=== PATIENT | male | born 1980 | race Caucasian/White ===

== ENCOUNTER 2016-05-12 14:10 | Emergency (ER) | payer MEDICARE, MEDICAID ==
[2016-05-12 15:33] LABS: CALCIUM OXALATE CRYSTALS MODERATE
[2016-05-12] MEDS ORDERED: MORPHINE 4 MG/ML 1ML SYRINGE As Ordered ONE (15:36)
[2016-05-12] MEDS ORDERED: ONDANSETRON 4MG/2ML VIAL (J2405) As Ordered ONE (15:36)
[2016-05-12] MEDS ORDERED: KETOROLAC 30 MG/ML VIAL (J1885) As Ordered ONE (15:36)
[2016-05-12 15:58] LABS: BASO # 0.1 K/mm3 (0.0-0.2); BASO % 0.8 % (0.0-1.0); EOS # 0.2 K/mm3 (0.0-0.50); EOS % 1.8 % (0.0-3.0); LARGE UNSTAINED CELL # 0.1 K/mm3 (0.0-0.4); LYMPH # 1.7 K/mm3 (1.5-4.5); LYMPH % 12.4 % (24.0-44.0); MEAN CORPUSCULAR HEMOGLOBIN 30.1 pg (27.0-33.0); MEAN CORPUSCULAR HGB CONC 33.2 g/dl (32.0-36.5); MEAN CORPUSCULAR VOLUME 90.9 fl (80.0-96.0); MONO # 0.7 K/mm3 (0.0-0.8); NEUTROPHILS # 10.2 K/mm3 (1.8-7.7); PLATELET COUNT, AUTOMATED 272 k/mm3 (150-450); RED CELL DISTRIBUTION WIDTH 13.9 % (11.5-14.5); WHITE BLOOD COUNT 12.9 K/mm3 (4.0-10.0)
[2016-05-12 16:02] LABS: INR 0.94
[2016-05-12 16:19] LABS: ALBUMIN 4.1 GM/DL (3.2-5.2); ALBUMIN/GLOBULIN RATIO 1.24 (1.00-1.93); ALKALINE PHOSPHATASE 311 U/L (45-117); ALT/SGPT 983 U/L (12-78); AMYLASE 45 U/L (25-115); ANION GAP 8 MEQ/L (8-16); AST/SGOT 462 U/L (15-37); BILIRUBIN,DIRECT 3.3 MG/DL (0.0-0.2); BILIRUBIN,TOTAL 3.9 MG/DL (0.2-1.0); BLOOD UREA NITROGEN 15 MG/DL (7-18); CALCIUM LEVEL 9.1 MG/DL (8.5-10.1); CARBON DIOXIDE LEVEL 27 MEQ/L (21-32); CHLORIDE LEVEL 105 MEQ/L (98-107); GLOMERULAR FILTRATION RATE > 60.0 (>60); GLUCOSE, FASTING 99 MG/DL (70-105); POTASSIUM SERUM 4.5 MEQ/L (3.5-5.1); SODIUM LEVEL 140 MEQ/L (136-145); TOTAL PROTEIN 7.4 GM/DL (6.4-8.2)
--- NOTE | 2016-05-12 16:25 | REP ---
Clinical: Right flank pain. Findings: Liver, spleen, pancreas, gallbladder, and bilateral adrenal glands are normal for noncontrast examination. The kidneys are grossly unremarkable and without perinephric stranding, hydroureteronephrosis, intrarenal or obstructing ureteral calculi. The enteric system is without obstruction or acute inflammatory process. Normal terminal ileum and appendix are identified in the right lower quadrant. Pelvis demonstrates collapsed normal bladder and age appropriate prostate/seminal vesicles. No pelvic fluid or ascites. No free air. No adenopathy. Abdominal aorta normal caliber without aneurysm. Musculoskeletal structures intact and without focal osseous abnormality. Lung bases are clear. Impression: Normal noncontrast CT of the abdomen and pelvis. Specifically, normal appearance to the kidneys/ureters and bladder. Signed by Yusuf Connelly MD 05/12/2016 04:16 P
--- NOTE | 2016-05-12 17:16 | REP ---
Clinical: Biliary colic . Technique: Willams scale ultrasound using curved array transducer. Findings: The liver demonstrates fatty infiltration without focal lesion. The pancreas is incompletely evaluated due to interposed bowel gas. The gallbladder is normal without gallstones, wall thickening or pericholecystic fluid. The common bile duct is dilated to 15.5 mm without obvious choledocholithiasis or cause mild associated intrahepatic biliary ductal dilatation cannot be excluded as well. The right kidney is normal in reniform shape without hydronephrosis and measures 12.8 x 5.6 x 5.1 cm. No ascites. Visualized portions of the abdominal aorta normal. Impression: Common bile duct dilatation without obvious obstructing stone or cause. 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 Normal gallbladder. Signed by Yusuf Connelly MD 05/12/2016 05:08 P
--- NOTE | 2016-05-12 18:07 | EDDOCDS ---
Physician Documentation [facility] Name: Alexandre Rivas Age: 36 yrs Sex: Male : 1980 Arrival Date: 05/12/2016 Time: 14:10 Bed I8 / 16 Private MD: Tremayne Elias Disposition: 05/12/16 17:49 Discharged to Home/Self Care. Impression: Acute viral hepatitis, unspecified. - Condition is Stable. - Discharge Instructions: Diet and Hepatitis, Viral Hepatitis. - Prescriptions for Percocet 5- 325 mg Oral Tablet - take 1 tablet by ORAL route every 6 hours As needed MDD: 4 tabs; 20 tablet. Zofran 4 mg Oral Tablet - take 1 tablet by ORAL route 4 times per day As needed; 10 tablet. - Work Release Form - 5 day, Medication Reconciliation, Local Pharmacy Hours form. - Follow up: Tremayne Elias MD; When: 4 - 5 days; Reason: Recheck today's complaints, Continuance of care. Follow up: Apolinar Vargas; When: Call to arrange an appointment; Reason: Further diagnostic work-up, Continuance of care. - Problem is an ongoing problem. - Symptoms are unchanged. Historical: - Allergies: no known allergies; - Home Meds: 1. Lipitor Unknown Oral once daily (Last dose: 05/12/2016 08:00) 2. Vitamin B-12 1,000 mcg Oral tab daily 3. Vitamin D Oral 2000 units daily 4. Wellbutrin Oral 1 tab daily - PMHx: Hypercholesterolemia; Pernicious Anemia; - PSHx: Vasectomy; - Social history: Smoking status: Patient states was never smoker of tobacco. No barriers to communication noted, The patient speaks fluent Bulgarian. - Family history: Not pertinent. - : The pt / caregiver states he / she is not on anticoagulants. Home medication list is obtained from the patient. - Exposure Risk Screening:: None identified. Vital Signs: 05/12 14:12 BP 151 / 78; Pulse 73; Resp 18; Temp 98.2; Pulse Ox 100% on R/A; Weight 111.58 kg / sar1 245.99 lbs (R); Height 6 ft. 0 in. (182.88 cm); Pain 7/10; 14:12 Body Mass Index 33.36 (111.58 kg, 182.88 cm) sar1 MDM: 15:19 UA Ordered. EDMS 15:19 Urine Culture Ordered. EDMS 15:25 NS 0.9% 1000 ml IV at 100 mL/hr continuous ordered. ke 15:25 Ondansetron 4 mg IVP once ordered. ke 15:25 ketorolac 30 mg IVP once ordered. ke 15:25 morphine 4 mg IVP every 30 minutes; Document pain score/vitals after each dose (Hold if ke SBP < 90mmHg) x2 ordered. 15:25 IV Saline Lock ordered. ke 15:25 Undress patient appropriately for examination ordered. ke 15:26 Amylase Ordered. EDMS 15:26 Basic Metabolic Profile Ordered. EDMS 15:26 CBC with Diff Ordered. EDMS 15:26 Lipase Ordered. EDMS 15:26 Liver Profile Ordered. EDMS 15:26 Prothrombin Time Profile\E\INR Ordered. EDMS 15:26 CT ABD & PELVIS: No Contrast Ordered. EDMS 15:26 NOTHING BY MOUTH+DIET ordered. EDMS 16:01 Financial registration complete. [email or web address] 16:02 [facility] Payment Agreement was scanned into [employer] and attached to record. ks16 16:31 UA Reviewed. ke 16:31 CBC with Diff Reviewed. ke 16:31 Liver Profile Reviewed. ke 16:31 Amylase Reviewed. ke 16:31 Basic Metabolic Profile Reviewed. ke 16:31 Lipase Reviewed. ke 16:31 Prothrombin Time Profile\E\INR Reviewed. ke 16:31 CT ABD & PELVIS: No Contrast Reviewed. ke 16:35 Hepatitis Profile Ordered. EDMS 16:35 US Gallbladder Ordered. EDMS Administered Medications: 15:44 Drug: NS 0.9% 1000 ml [sodium chloride 0.9 % intravenous solution] Route: IV; Rate: 100 jc4 mL/hr; Site: right antecubital; 15:44 Drug: Ondansetron 4 mg [ondansetron HCl 2 mg/mL intravenous solution (2 mL)] Route: jc4 IVP; Site: right antecubital; 15:46 Drug: ketorolac 30 mg [ketorolac 30 mg/mL (1 mL) injection solution (1 mL)] Route: IVP; jc4 Site: right antecubital; 15:50 Drug: morphine 4 mg [morphine 4 mg/mL intravenous cartridge (1 mL)] Route: IVP; Site: jc4 right antecubital; Signatures: Dispatcher [employer] Andrea Cui RN RN ms2 Sorin Weiss RN RN Hair Chauhan, INSTRUCTOR BALLROOM DANCING Faby Ortiz RN RN jc4 Chely Torres, Reg Reg [email or web address] The chart was reviewed and I authenticate all verbal orders and agree with the evaluation and treatment provided.Attachments: 16:02 [facility] Payment Agreement [email or web address] MTDD
--- NOTE | 2016-05-12 18:07 | EDDOCDS ---
Nurse's Notes [facility] Name: Alexandre Rivas Age: 36 yrs Sex: Male : 1980 Arrival Date: 05/12/2016 Time: 14:10 Bed I8 / 16 Private MD: Tremayne Elias Diagnosis: Acute viral hepatitis, unspecified Presentation: 05/12 14:14 Presenting complaint: Patient states: right flank with nausea, diaphoresis and right po abd pain x1 hour. Pain and nausea improved at this time. Risk factors: the patient reports not having a history of previous torsion. Adult Sepsis Screening: The patient does not have new or worsening altered mentation. Patient's respiratory rate is less than 22. Systolic blood pressure is greater than 100. Patient has a qSOFA score of 0- Negative Sepsis Screen. Suicide/Homicide risk assessment- the patient denies having any suicidal and/or homicidal ideations and does not present with any other emotional, behavioral or mental health complaints. Status: Patient is not a automotive service porter or dependent. Transition of care: patient was not received from another setting of care. 14:14 Acuity: GENIA Level 3 po 14:14 Method Of Arrival: Walkin/Carried/Asstd po Triage Assessment: 14:19 General: Appears in no apparent distress, Behavior is appropriate for age, cooperative. po Pain: Location: right flank, right upper quadrant and right lower quadrant Pain currently is 5 out of 10 on a pain scale. Is continuous. Pt Declines HIV testing. Neurological: No deficits noted. Respiratory: Airway is patent Respiratory effort is even, unlabored. GI: Denies nausea. Derm: Skin is pink, warm & dry. Historical: - Allergies: no known allergies; - Home Meds: 1. Lipitor Unknown Oral once daily (Last dose: 05/12/2016 08:00) 2. Vitamin B-12 1,000 mcg Oral tab daily 3. Vitamin D Oral 2000 units daily 4. Wellbutrin Oral 1 tab daily - PMHx: Hypercholesterolemia; Pernicious Anemia; - PSHx: Vasectomy; - Social history: Smoking status: Patient states was never smoker of tobacco. No barriers to communication noted, The patient speaks fluent Nigerian. - Family history: Not pertinent. - : The pt / caregiver states he / she is not on anticoagulants. Home medication list is obtained from the patient. - Exposure Risk Screening:: None identified. Screenin:47 Screening information is obtained from the patient. Fall risk: No risks identified. jc4 Assistance ADL's: requires no assistance with activities of daily living. Abuse/DV Screen: The patient / caregiver reports he/she is: not in a situation that causes fear, pain or injury. Nutritional screening: On no prescribed diet. Advance Directives: Currently, there is no health care proxy. There is no active DNR order. There is no living will. There is no Power of Preparation Supervisor Canning. home support is adequate. Assessment: 15:48 General: Appears uncomfortable. Pain: Pain currently is 7 out of 10 on a pain scale. jc4 Neurological: Level of Consciousness is awake, alert, Oriented to person, place, time. Respiratory: Airway is patent Respiratory effort is even, unlabored, Respiratory pattern is regular, symmetrical. GI: Abdomen is obese, Bowel sounds present X 4 quads. Abd is tender to palpation in right upper quadrant and right lower quadrant. GI: Denies diarrhea, nausea, vomiting. Derm: Skin is pink, warm & dry. 17:11 General: Appears in no apparent distress, comfortable, Behavior is cooperative. Pain: ms2 Denies pain. Neurological: Level of Consciousness is awake, alert, obeys commands. Respiratory: No deficits noted. Airway is patent Respiratory effort is even, unlabored, Respiratory pattern is regular, symmetrical. GI: Abdomen is non- distended obese. Derm: Skin is pink, warm & dry. Musculoskeletal: Range of motion intact in all extremities. Vital Signs: 14:12 BP 151 / 78; Pulse 73; Resp 18; Temp 98.2; Pulse Ox 100% on R/A; Weight 111.58 kg (R); sar1 Height 6 ft. 0 in. (182.88 cm); Pain 7/10; 14:12 Body Mass Index 33.36 (111.58 kg, 182.88 cm) [facility] Vitals: 14:12 Log In Time: May 12, 2016 at 14:12. [facility] ED Course: 14:11 Patient visited by Polina Glass, Event Executive. sar1 14:11 Patient moved to Waiting [facility] 14:12 Tremayne Elias MD is Private Physician. sar1 14:13 Patient moved to Pre RCE sar1 14:16 Triage Initiated po 14:19 Arm band placed on right wrist. Patient placed in waiting room. Family accompanied po patient. 14:21 Patient visited by Sorin Weiss,RADHA. po 15:13 Andrea Young,RADHA is Primary Nurse. mlb1 15:13 [facility] Rodriguez FNP [facility]. ke 15:13 Patient visited by Hair Rodriguez FNP. ke 15:13 Patient visited by Hair Rodriguez FNP. ke 15:13 Patient moved to I8 / 16 mlb1 15:35 Patient visited by Hair Rodriguez FNP. ke 15:49 The patient / caregiver is instructed regarding the plan of care and ED course. jc4 15:50 Inserted saline lock: 20 gauge in right antecubital area The patient tolerated the jc4 procedure well. done by Darcie Valdivia RN. 16:02 [facility] Payment Agreement was scanned into [employer] and attached to record. ks16 16:05 Patient visited by Hair Rodriguez FNP. ke 16:31 CT ABD & PELVIS: No Contrast Returned. EDMS 16:32 Patient visited by Lucas Hubbard PCA. jlf 17:04 Patient visited by Hair Rodriguez FNP. ke 17:12 The patient / caregiver is instructed regarding the plan of care and ED course. ms2 17:12 IV is patent, is intact, is free of redness or swelling. solution is infusing as ms2 ordered. No procedures done that require assistance. 17:31 US Gallbladder Returned. EDMS 17:34 Patient visited by Hair Rodriguez FNP. ke 17:48 Tremayne Elias MD is Referral Physician. ke 17:48 Apolinar Vargas is Referral Physician. ke Administered Medications: 15:44 Drug: NS 0.9% 1000 ml [sodium chloride 0.9 % intravenous solution] Route: IV; Rate: 100 jc4 mL/hr; Site: right antecubital; 15:44 Drug: Ondansetron 4 mg [ondansetron HCl 2 mg/mL intravenous solution (2 mL)] Route: jc4 IVP; Site: right antecubital; 15:46 Drug: ketorolac 30 mg [ketorolac 30 mg/mL (1 mL) injection solution (1 mL)] Route: IVP; jc4 Site: right antecubital; 15:50 Drug: morphine 4 mg [morphine 4 mg/mL intravenous cartridge (1 mL)] Route: IVP; Site: 4 right antecubital; Order Results: Lab Order: UA; SPEC'M 05/12/16 15:20 Test: APPEARANCE, URINE; Value: HAZY; Range: CLEAR; Status: F Test: COLOR, URINE; Value: KEVIN; Range: YELLOW; Status: F Test: PH,URINE; Value: 5.0; Range: 5.0-9.0; Units: UNITS; Status: F Test: SPECIFIC GRAVITY URINE AUTO; Value: 1.032; Range: 1.002-1.035; Status: F Test: PROTEIN, URINE AUTO; Value: 1+; Range: NEGATIVE; Abnormal: Above high normal; Units: mg/dL; Status: F Test: GLUCOSE, URINE (UA) AUTO; Value: NEGATIVE; Range: NEGATIVE; Units: mg/dL; Status: F Test: KETONE, URINE AUTO; Value: NEGATIVE; Range: NEGATIVE; Units: mg/dL; Status: F Test: UROBILINOGEN, URINE AUTO; Value: 4.0; Range: 0.0-2.0; Abnormal: Above high normal; Units: mg/dL; Status: F Test: BILIRUBIN, URINE AUTO; Value: 2+; Range: NEGATIVE; Abnormal: Above high normal; Status: F Test: NITRITE, URINE AUTO; Value: NEGATIVE; Range: NEGATIVE; Status: F Test: LEUKOCYTE ESTERASE, URINE AUTO; Value: NEGATIVE; Range: NEGATIVE; Status: F Test: BLOOD, URINE BLOOD; Value: NEGATIVE; Range: NEGATIVE; Status: F Test: WBC, URINE AUTO; Value: 2; Range: 0-3; Units: /HPF; Status: F Test: RBC, URINE AUTO; Value: 4; Range: 0-3; Abnormal: Above high normal; Units: /HPF; Status: F Test: BACTERIA, URINE AUTO; Value: NEGATIVE; Range: NEGATIVE; Status: F Test: SQUAMOUS EPITHELIAL CELL UR AU; Value: 0; Range: 0-6; Units: /HPF; Status: F Test: MUCUS, URINE; Value: LARGE; Range: NEGATIVE; Status: F Test: HYALINE CAST, URINE AUTO; Value: 0; Range: 0-1; Units: /LPF; Status: F Test: CALCIUM OXALATE CRYSTALS; Value: MODERATE; Range: NONE; Status: F Lab Order: Amylase; SPEC'M 05/12/16 15:32 Test: AMYLASE; Value: 45; Range: 25-115; Units: U/L; Status: F Lab Order: Basic Metabolic Profile; SPEC'M 05/12/16 15:32 Test: GLUCOSE, FASTING; Value: 99; Range: 70-105; Units: MG/DL; Status: F Test: BLOOD UREA NITROGEN; Value: 15; Range: 7-18; Units: MG/DL; Status: F Test: CREATININE FOR GFR; Value: 1.00; Range: 0.70-1.30; Units: MG/DL; Status: F Test: GLOMERULAR FILTRATION RATE; Value: > 60.0; Range: >60; Status: F Test: SODIUM LEVEL; Value: 140; Range: 136-145; Units: MEQ/L; Status: F Test: POTASSIUM SERUM; Value: 4.5; Range: 3.5-5.1; Units: MEQ/L; Status: F Test: CHLORIDE LEVEL; Value: 105; Range: 98-107; Units: MEQ/L; Status: F Test: CARBON DIOXIDE LEVEL; Value: 27; Range: 21-32; Units: MEQ/L; Status: F Test: ANION GAP; Value: 8; Range: 8-16; Units: MEQ/L; Status: F Test: CALCIUM LEVEL; Value: 9.1; Range: 8.5-10.1; Units: MG/DL; Status: F Test Note: ; Units are mL/min/1.73 m2 Chronic Kidney Disease Staging per NKF: Stage I & II GFR >=60 Normal to Mildly Decreased Stage III GFR 30-59 Moderately Decreased Stage IV GFR 15-29 Severely Decreased Stage V GFR <15 Very Little GFR Left ESRD GFR <15 on BEHAVIORAL HEALTH CARE MANAGER Lab Order: CBC with Diff; SPEC'M 05/12/16 15:32 Test: WHITE BLOOD COUNT; Value: 12.9; Range: 4.0-10.0; Abnormal: Above high normal; Units: K/mm3; Status: F Test: RED BLOOD COUNT; Value: 4.92; Range: 4.30-6.10; Units: M/mm3; Status: F Test: HEMOGLOBIN; Value: 14.8; Range: 14.0-18.0; Units: g/dl; Status: F Test: HEMATOCRIT; Value: 44.7; Range: 42.0-52.0; Units: %; Status: F Test: MEAN CORPUSCULAR VOLUME; Value: 90.9; Range: 80.0-96.0; Units: fl; Status: F Test: MEAN CORPUSCULAR HEMOGLOBIN; Value: 30.1; Range: 27.0-33.0; Units: pg; Status: F Test: MEAN CORPUSCULAR HGB CONC; Value: 33.2; Range: 32.0-36.5; Units: g/dl; Status: F Test: RED CELL DISTRIBUTION WIDTH; Value: 13.9; Range: 11.5-14.5; Units: %; Status: F Test: PLATELET COUNT, AUTOMATED; Value: 272; Range: 150-450; Units: k/mm3; Status: F Test: NEUTROPHILS %; Value: 79.0; Range: 36.0-66.0; Abnormal: Above high normal; Units: %; Status: F Test: LYMPH %; Value: 12.4; Range: 24.0-44.0; Abnormal: Below low normal; Units: %; Status: F Test: MONO %; Value: 5.0; Range: 0.0-5.0; Units: %; Status: F Test: EOS %; Value: 1.8; Range: 0.0-3.0; Units: %; Status: F Test: BASO %; Value: 0.8; Range: 0.0-1.0; Units: %; Status: F Test: LARGE UNSTAINED CELL %; Value: 1.0; Range: 0.0-4.0; Units: %; Status: F Test: NEUTROPHILS #; Value: 10.2; Range: 1.8-7.7; Abnormal: Above high normal; Units: K/mm3; Status: F Test: LYMPH #; Value: 1.7; Range: 1.5-4.5; Units: K/mm3; Status: F Test: MONO #; Value: 0.7; Range: 0.0-0.8; Units: K/mm3; Status: F Test: EOS #; Value: 0.2; Range: 0.0-0.50; Units: K/mm3; Status: F Test: BASO #; Value: 0.1; Range: 0.0-0.2; Units: K/mm3; Status: F Test: LARGE UNSTAINED CELL #; Value: 0.1; Range: 0.0-0.4; Units: K/mm3; Status: F Lab Order: Lipase; [facility] 05/12/16 15:32 Test: LIPASE; Value: 203; Range: 73-393; Units: U/L; Status: F Lab Order: Liver Profile; [facility] 05/12/16 15:32 Test: AST/SGOT; Value: 462; Range: 15-37; Abnormal: Above high normal; Units: U/L; Status: F Test: ALT/SGPT; Value: 983; Range: 12-78; Abnormal: Above high normal; Units: U/L; Status: F Test: ALKALINE PHOSPHATASE; Value: 311; Range: 45-117; Abnormal: Above high normal; Units: U/L; Status: F Test: BILIRUBIN,TOTAL; Value: 3.9; Range: 0.2-1.0; Abnormal: Above high normal; Units: MG/DL; Status: F Test: BILIRUBIN,DIRECT; Value: 3.3; Range: 0.0-0.2; Abnormal: Above high normal; Units: MG/DL; Status: F Test: TOTAL PROTEIN; Value: 7.4; Range: 6.4-8.2; Units: GM/DL; Status: F Test: ALBUMIN; Value: 4.1; Range: 3.2-5.2; Units: GM/DL; Status: F Test: ALBUMIN/GLOBULIN RATIO; Value: 1.24; Range: 1.00-1.93; Status: F Lab Order: Prothrombin Time Profile\E\INR; [facility] 05/12/16 15:32 Test: PROTHROMBIN TIME; Value: 12.7; Range: 12.3-14.5; Units: SECONDS; Status: F Test: INR; Value: 0.94; Status: F Test Note: ; THERAPUTIC HUMAN INR VALUES INDICATIONS NORMAL RANGES PROPHYLAXIS/TREATMENT OF: VENOUS THROMBOSIS 2.0-3.0 PULMONARY EMBOLISM 2.0-3.0 PREVENTION OF SYSTEMIC EMBOLISM FROM: TISSUE HEART VALVES 2.0-3.0 ACUTE MYOCARDIAL INFARCTION 2.0-3.0 VALVULAR HEART DISEASE 2.0-3.0 ATRIAL FIBRILLATION 2.0-3.0 MECHANICAL VALVES(HIGH RISK) 2.5-3.5 RECURRENT MYOCARDIAL INFARCTION 2.5-3.5 Radiology Order: CT ABD & PELVIS: No Contrast Test: CT ABD & PELVIS: No Contrast REASON FOR EXAMINATION: Renal colic; Clinical: Right flank pain.; ; Findings:; Liver, spleen, pancreas, gallbladder, and bilateral adrenal glands are normal for; noncontrast examination. The kidneys are grossly unremarkable and without; perinephric stranding, hydroureteronephrosis, intrarenal or obstructing ureteral; calculi. The enteric system is without obstruction or acute inflammatory; process. Normal terminal ileum and appendix are identified in the right lower; quadrant. Pelvis demonstrates collapsed normal bladder and age appropriate; prostate/seminal vesicles. No pelvic fluid or ascites. No free air. No; adenopathy. Abdominal aorta normal caliber without aneurysm. Musculoskeletal; structures intact and without focal osseous abnormality. Lung bases are clear.; ; Impression:; Normal noncontrast CT of the abdomen and pelvis.; Specifically, normal appearance to the kidneys/ureters and bladder.; ; ; Signed by; Yusuf Connelly MD 05/12/2016 04:16 P; Radiology Order: US Gallbladder Test: US Gallbladder REASON FOR EXAMINATION: Biliary Colic; Clinical: Biliary colic .; ; Technique: Willams scale ultrasound using curved array transducer.; ; Findings: The liver demonstrates fatty infiltration without focal lesion. The; pancreas is incompletely evaluated due to interposed bowel gas. The gallbladder; is normal without gallstones, wall thickening or pericholecystic fluid. The; common bile duct is dilated to 15.5 mm without obvious choledocholithiasis or; cause mild associated intrahepatic biliary ductal dilatation cannot be excluded; as well. The right kidney is normal in reniform shape without hydronephrosis and; measures 12.8 x 5.6 x 5.1 cm. No ascites. 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 ke 18:06 Patient left the ED. ms2 Signatures: Dispatcher [employer] EDMS Andrea Young,RN RN ms2 Sorin Weiss,RN RN Hair Chauhan, TOOL AND CUTTER GRINDER TOOL AND CUTTER GRINDER Troy Alarcon RN RN mlb1 Faby Palacio, RN RN jc4 Lucas Hubbard, BALLROOM DANCER BALLROOM DANCER jlf Polina Glass, Event Executive Unit [facility] Chely Torres, Reg Reg [email or web address] MTDD
--- NOTE | 2016-05-14 19:07 | EDDOCDS ---
Physician Documentation [facility] Name: Alexandre Rivas Age: 36 yrs Sex: Male : 1980 Arrival Date: 05/12/2016 Time: 14:10 Bed I8 / 16 Private MD: Tremayne Elias Disposition: 05/12/16 17:49 Discharged to Home/Self Care. Impression: Acute viral hepatitis, unspecified. - Condition is Stable. - Discharge Instructions: Diet and Hepatitis, Viral Hepatitis. - Prescriptions for Percocet 5- 325 mg Oral Tablet - take 1 tablet by ORAL route every 6 hours As needed MDD: 4 tabs; 20 tablet. Zofran 4 mg Oral Tablet - take 1 tablet by ORAL route 4 times per day As needed; 10 tablet. - Work Release Form - 5 day, Medication Reconciliation, Local Pharmacy Hours form. - Follow up: Tremayne Elias MD; When: 4 - 5 days; Reason: Recheck today's complaints, Continuance of care. Follow up: Apolinar Vargas; When: Call to arrange an appointment; Reason: Further diagnostic work-up, Continuance of care. - Problem is an ongoing problem. - Symptoms are unchanged. Historical: - Allergies: no known allergies; - Home Meds: 1. Lipitor Unknown Oral once daily (Last dose: 05/12/2016 08:00) 2. Vitamin B-12 1,000 mcg Oral tab daily 3. Vitamin D Oral 2000 units daily 4. Wellbutrin Oral 1 tab daily - PMHx: Hypercholesterolemia; Pernicious Anemia; - PSHx: Vasectomy; - Social history: Smoking status: Patient states was never smoker of tobacco. No barriers to communication noted, The patient speaks fluent Korean. - Family history: Not pertinent. - : The pt / caregiver states he / she is not on anticoagulants. Home medication list is obtained from the patient. - Exposure Risk Screening:: None identified. Vital Signs: 05/12 14:12 BP 151 / 78; Pulse 73; Resp 18; Temp 98.2; Pulse Ox 100% on R/A; Weight 111.58 kg / sar1 245.99 lbs (R); Height 6 ft. 0 in. (182.88 cm); Pain 7/10; 18:06 BP 121 / 66; Pulse 70; Resp 20 S; Temp 98.3(O); Pulse Ox 97% on R/A; Pain 0/10; ms2 14:12 Body Mass Index 33.36 (111.58 kg, 182.88 cm) sar1 MDM: 15:19 UA Ordered. EDMS 15:19 Urine Culture Ordered. EDMS 15:25 NS 0.9% 1000 ml IV at 100 mL/hr continuous ordered. ke 15:25 Ondansetron 4 mg IVP once ordered. ke 15:25 ketorolac 30 mg IVP once ordered. ke 15:25 morphine 4 mg IVP every 30 minutes; Document pain score/vitals after each dose (Hold if ke SBP < 90mmHg) x2 ordered. 15:25 IV Saline Lock ordered. ke 15:25 Undress patient appropriately for examination ordered. ke 15:26 Amylase Ordered. EDMS 15:26 Basic Metabolic Profile Ordered. EDMS 15:26 CBC with Diff Ordered. EDMS 15:26 Lipase Ordered. EDMS 15:26 Liver Profile Ordered. EDMS 15:26 Prothrombin Time Profile\E\INR Ordered. EDMS 15:26 CT ABD & PELVIS: No Contrast Ordered. EDMS 15:26 NOTHING BY MOUTH+DIET ordered. EDMS 16:01 Financial registration complete. [id number] 16:02 [facility] Payment Agreement was scanned into [employer] and attached to record. ks16 16:31 UA Reviewed. ke 16:31 CBC with Diff Reviewed. ke 16:31 Liver Profile Reviewed. ke 16:31 Amylase Reviewed. ke 16:31 Basic Metabolic Profile Reviewed. ke 16:31 Lipase Reviewed. ke 16:31 Prothrombin Time Profile\E\INR Reviewed. ke 16:31 CT ABD & PELVIS: No Contrast Reviewed. ke 16:35 Hepatitis Profile Ordered. EDMS 16:35 US Gallbladder Ordered. EDMS 19:17 ED course: radiology report faxed to Dr. Elias. sd1 05/13 06:35 T-Sheet-- Draft Copy was scanned into [employer] and attached to record. hs2 Administered Medications: 05/12 15:44 Drug: NS 0.9% 1000 ml [sodium chloride 0.9 % intravenous solution] Route: IV; Rate: 100 jc4 mL/hr; Site: right antecubital; 15:44 Drug: Ondansetron 4 mg [ondansetron HCl 2 mg/mL intravenous solution (2 mL)] Route: jc4 IVP; Site: right antecubital; 15:46 Drug: ketorolac 30 mg [ketorolac 30 mg/mL (1 mL) injection solution (1 mL)] Route: IVP; jc4 Site: right antecubital; 15:50 Drug: morphine 4 mg [morphine 4 mg/mL intravenous cartridge (1 mL)] Route: IVP; Site: jc4 right antecubital; Signatures: Dispatcher [employer] EDTX Prema Ortega MD MD sd1 Andrea Young,RN RN ms2 Sorin Weiss RN RN po Hair Rodriguez, KNOWLEDGE ENGINEER KNOWLEDGE ENGINEER Faby Escamilla RN RN jc4 Chely Torres, Reg Reg ks16 Uma Jeong, Reg Reg hs2 The chart was reviewed and I authenticate all verbal orders and agree with the evaluation and treatment provided.Attachments: 16:02 [facility] Payment Agreement [email or web address] 05/13 06:35 T-Sheet-- Draft Copy hs2 Chart Complete MTDD
--- NOTE | 2016-05-14 19:07 | EDDOCDS ---
Physician Documentation [facility] Name: Alexandre Rivas Age: 36 yrs Sex: Male : 1980 Arrival Date: 05/12/2016 Time: 14:10 Bed I8 / 16 Private MD: Tremayne Elias Disposition: 05/12/16 17:49 Discharged to Home/Self Care. Impression: Acute viral hepatitis, unspecified. - Condition is Stable. - Discharge Instructions: Diet and Hepatitis, Viral Hepatitis. - Prescriptions for Percocet 5- 325 mg Oral Tablet - take 1 tablet by ORAL route every 6 hours As needed MDD: 4 tabs; 20 tablet. Zofran 4 mg Oral Tablet - take 1 tablet by ORAL route 4 times per day As needed; 10 tablet. - Work Release Form - 5 day, Medication Reconciliation, Local Pharmacy Hours form. - Follow up: Tremayne Elias MD; When: 4 - 5 days; Reason: Recheck today's complaints, Continuance of care. Follow up: Apolinar Vargas; When: Call to arrange an appointment; Reason: Further diagnostic work-up, Continuance of care. - Problem is an ongoing problem. - Symptoms are unchanged. Historical: - Allergies: no known allergies; - Home Meds: 1. Lipitor Unknown Oral once daily (Last dose: 05/12/2016 08:00) 2. Vitamin B-12 1,000 mcg Oral tab daily 3. Vitamin D Oral 2000 units daily 4. Wellbutrin Oral 1 tab daily - PMHx: Hypercholesterolemia; Pernicious Anemia; - PSHx: Vasectomy; - Social history: Smoking status: Patient states was never smoker of tobacco. No barriers to communication noted, The patient speaks fluent Telugu. - Family history: Not pertinent. - : The pt / caregiver states he / she is not on anticoagulants. Home medication list is obtained from the patient. - Exposure Risk Screening:: None identified. Vital Signs: 05/12 14:12 BP 151 / 78; Pulse 73; Resp 18; Temp 98.2; Pulse Ox 100% on R/A; Weight 111.58 kg / sar1 245.99 lbs (R); Height 6 ft. 0 in. (182.88 cm); Pain 7/10; 18:06 BP 121 / 66; Pulse 70; Resp 20 S; Temp 98.3(O); Pulse Ox 97% on R/A; Pain 0/10; ms2 14:12 Body Mass Index 33.36 (111.58 kg, 182.88 cm) sar1 MDM: 15:19 UA Ordered. EDMS 15:19 Urine Culture Ordered. EDMS 15:25 NS 0.9% 1000 ml IV at 100 mL/hr continuous ordered. ke 15:25 Ondansetron 4 mg IVP once ordered. ke 15:25 ketorolac 30 mg IVP once ordered. ke 15:25 morphine 4 mg IVP every 30 minutes; Document pain score/vitals after each dose (Hold if ke SBP < 90mmHg) x2 ordered. 15:25 IV Saline Lock ordered. ke 15:25 Undress patient appropriately for examination ordered. ke 15:26 Amylase Ordered. EDMS 15:26 Basic Metabolic Profile Ordered. EDMS 15:26 CBC with Diff Ordered. EDMS 15:26 Lipase Ordered. EDMS 15:26 Liver Profile Ordered. EDMS 15:26 Prothrombin Time Profile\E\INR Ordered. EDMS 15:26 CT ABD & PELVIS: No Contrast Ordered. EDMS 15:26 NOTHING BY MOUTH+DIET ordered. EDMS 16:01 Financial registration complete. [email or web address] 16:02 [facility] Payment Agreement was scanned into [employer] and attached to record. [email or web address] 16:31 UA Reviewed. ke 16:31 CBC with Diff Reviewed. ke 16:31 Liver Profile Reviewed. ke 16:31 Amylase Reviewed. ke 16:31 Basic Metabolic Profile Reviewed. ke 16:31 Lipase Reviewed. ke 16:31 Prothrombin Time Profile\E\INR Reviewed. ke 16:31 CT ABD & PELVIS: No Contrast Reviewed. ke 16:35 Hepatitis Profile Ordered. EDMS 16:35 US Gallbladder Ordered. EDMS 19:17 ED course: radiology report faxed to Dr. Elias. sd1 05/13 06:35 T-Sheet-- Draft Copy was scanned into [employer] and attached to record. hs2 Administered Medications: 05/12 15:44 Drug: NS 0.9% 1000 ml [sodium chloride 0.9 % intravenous solution] Route: IV; Rate: 100 jc4 mL/hr; Site: right antecubital; 15:44 Drug: Ondansetron 4 mg [ondansetron HCl 2 mg/mL intravenous solution (2 mL)] Route: jc4 IVP; Site: right antecubital; 15:46 Drug: ketorolac 30 mg [ketorolac 30 mg/mL (1 mL) injection solution (1 mL)] Route: IVP; jc4 Site: right antecubital; 15:50 Drug: morphine 4 mg [morphine 4 mg/mL intravenous cartridge (1 mL)] Route: IVP; Site: jc4 right antecubital; Signatures: Dispatcher [employer] EDPA Prema Ortega MD MD sd1 Andrea Young,RN RN ms2 Sorin Weiss RN RN po Hair Rodriguez, SPARE PERSON SPARE PERSON Faby Escamilla RN RN jc4 Chely Torres, Reg Reg ks16 Uma Jeong, Reg Reg hs2 The chart was reviewed and I authenticate all verbal orders and agree with the evaluation and treatment provided.Attachments: 16:02 [facility] Payment Agreement [email or web address] 05/13 06:35 T-Sheet-- Draft Copy hs2 Chart Complete MTDD
--- NOTE | 2016-05-14 19:07 | EDDOCDS ---
Nurse's Notes [facility] Name: Alexandre Rivas Age: 36 yrs Sex: Male : 1980 Arrival Date: 05/12/2016 Time: 14:10 Bed I8 / 16 Private MD: Tremayne Elias Diagnosis: Acute viral hepatitis, unspecified Presentation: 05/12 14:14 Presenting complaint: Patient states: right flank with nausea, diaphoresis and right po abd pain x1 hour. Pain and nausea improved at this time. Risk factors: the patient reports not having a history of previous torsion. Adult Sepsis Screening: The patient does not have new or worsening altered mentation. Patient's respiratory rate is less than 22. Systolic blood pressure is greater than 100. Patient has a qSOFA score of 0- Negative Sepsis Screen. Suicide/Homicide risk assessment- the patient denies having any suicidal and/or homicidal ideations and does not present with any other emotional, behavioral or mental health complaints. Status: Patient is not a technical services analyst or dependent. Transition of care: patient was not received from another setting of care. 14:14 Acuity: GENIA Level 3 po 14:14 Method Of Arrival: Walkin/Carried/Asstd po Triage Assessment: 14:19 General: Appears in no apparent distress, Behavior is appropriate for age, cooperative. po Pain: Location: right flank, right upper quadrant and right lower quadrant Pain currently is 5 out of 10 on a pain scale. Is continuous. Pt Declines HIV testing. Neurological: No deficits noted. Respiratory: Airway is patent Respiratory effort is even, unlabored. GI: Denies nausea. Derm: Skin is pink, warm & dry. Historical: - Allergies: no known allergies; - Home Meds: 1. Lipitor Unknown Oral once daily (Last dose: 05/12/2016 08:00) 2. Vitamin B-12 1,000 mcg Oral tab daily 3. Vitamin D Oral 2000 units daily 4. Wellbutrin Oral 1 tab daily - PMHx: Hypercholesterolemia; Pernicious Anemia; - PSHx: Vasectomy; - Social history: Smoking status: Patient states was never smoker of tobacco. No barriers to communication noted, The patient speaks fluent Cameroonian. - Family history: Not pertinent. - : The pt / caregiver states he / she is not on anticoagulants. Home medication list is obtained from the patient. - Exposure Risk Screening:: None identified. Screenin:47 Screening information is obtained from the patient. Fall risk: No risks identified. jc4 Assistance ADL's: requires no assistance with activities of daily living. Abuse/DV Screen: The patient / caregiver reports he/she is: not in a situation that causes fear, pain or injury. Nutritional screening: On no prescribed diet. Advance Directives: Currently, there is no health care proxy. There is no active DNR order. There is no living will. There is no Power of Blackjack Supervisor. home support is adequate. Assessment: 15:48 General: Appears uncomfortable. Pain: Pain currently is 7 out of 10 on a pain scale. jc4 Neurological: Level of Consciousness is awake, alert, Oriented to person, place, time. Respiratory: Airway is patent Respiratory effort is even, unlabored, Respiratory pattern is regular, symmetrical. GI: Abdomen is obese, Bowel sounds present X 4 quads. Abd is tender to palpation in right upper quadrant and right lower quadrant. GI: Denies diarrhea, nausea, vomiting. Derm: Skin is pink, warm & dry. 17:11 General: Appears in no apparent distress, comfortable, Behavior is cooperative. Pain: ms2 Denies pain. Neurological: Level of Consciousness is awake, alert, obeys commands. Respiratory: No deficits noted. Airway is patent Respiratory effort is even, unlabored, Respiratory pattern is regular, symmetrical. GI: Abdomen is non- distended obese. Derm: Skin is pink, warm & dry. Musculoskeletal: Range of motion intact in all extremities. 18:06 General: Appears in no apparent distress, comfortable, Behavior is cooperative, ms2 pleasant, mother with py. Pain: Denies pain. Neurological: Level of Consciousness is awake, alert, obeys commands. Respiratory: No deficits noted. Airway is patent Respiratory effort is even, unlabored, Respiratory pattern is regular, symmetrical. GI: Abdomen is non- distended. Derm: Skin is pink, warm & dry. Musculoskeletal: Range of motion intact in all extremities. Vital Signs: 14:12 BP 151 / 78; Pulse 73; Resp 18; Temp 98.2; Pulse Ox 100% on R/A; Weight 111.58 kg (R); sar1 Height 6 ft. 0 in. (182.88 cm); Pain 7/10; 18:06 BP 121 / 66; Pulse 70; Resp 20 S; Temp 98.3(O); Pulse Ox 97% on R/A; Pain 0/10; ms2 14:12 Body Mass Index 33.36 (111.58 kg, 182.88 cm) [facility] Vitals: 14:12 Log In Time: May 12, 2016 at 14:12. [facility] ED Course: 14:11 Patient visited by Polina Glass, Chemical Engineer. sar1 14:11 Patient moved to Waiting [facility] 14:12 Tremayne Elias MD is Private Physician. sar1 14:13 Patient moved to Pre RCE sar1 14:16 Triage Initiated po 14:19 Arm band placed on right wrist. Patient placed in waiting room. Family accompanied po patient. 14:21 Patient visited by Sorin Weiss,RADHA. po 15:13 Andrea Young,RADHA is Primary Nurse. mlb1 15:13 Hair Rodriguez FNP is PHCP. ke 15:13 Patient visited by Hair Rodriguez FNP. ke 15:13 Patient visited by Hair Rodriguez FNP. ke 15:13 Patient moved to I8 / 16 mlb1 15:35 Patient visited by Hair Rodriguez FNP. ke 15:49 The patient / caregiver is instructed regarding the plan of care and ED course. jc4 15:50 Inserted saline lock: 20 gauge in right antecubital area The patient tolerated the jc4 procedure well. done by Darcie Valdivia RN. 16:02 [facility] Payment Agreement was scanned into [employer] and attached to record. ks16 16:05 Patient visited by Hair Rodriguez FNP. ke 16:31 CT ABD & PELVIS: No Contrast Returned. EDMS 16:32 Patient visited by Lucas Hubbard PCA. jlf 17:04 Patient visited by Hair Rodriguez FNP. ke 17:12 The patient / caregiver is instructed regarding the plan of care and ED course. ms2 17:12 IV is patent, is intact, is free of redness or swelling. solution is infusing as ms2 ordered. No procedures done that require assistance. 17:31 US Gallbladder Returned. EDMS 17:34 Patient visited by Hair Rodriguez FNP. ke 17:48 Tremayne Elias MD is Referral Physician. ke 17:48 Apolinar Vargas is Referral Physician. ke 18:06 The patient / caregiver is instructed regarding the plan of care and ED course. ms2 18:06 Discontinued IV intact, bleeding controlled, pressure dressing applied, No ms2 redness/swelling at site. 05/13 06:35 T-Sheet-- Draft Copy was scanned into [employer] and attached to record. hs2 Administered Medications: 05/12 15:44 Drug: NS 0.9% 1000 ml [sodium chloride 0.9 % intravenous solution] Route: IV; Rate: 100 jc4 mL/hr; Site: right antecubital; 15:44 Drug: Ondansetron 4 mg [ondansetron HCl 2 mg/mL intravenous solution (2 mL)] Route: jc4 IVP; Site: right antecubital; 15:46 Drug: ketorolac 30 mg [ketorolac 30 mg/mL (1 mL) injection solution (1 mL)] Route: IVP; jc4 Site: right antecubital; 15:50 Drug: morphine 4 mg [morphine 4 mg/mL intravenous cartridge (1 mL)] Route: IVP; Site: jc4 right antecubital; Intake: 18:06 PO: 0.00ml; IV: 300.00ml (NS); Total: 300.00ml. ms2 Output: 18:06 Urine: 0.00ml; Total: 0.00ml. ms2 Order Results: Lab Order: UA; SPEC'M 05/12/16 15:20 Test: APPEARANCE, URINE; Value: HAZY; Range: CLEAR; Status: F Test: COLOR, URINE; Value: KEVIN; Range: YELLOW; Status: F Test: PH,URINE; Value: 5.0; Range: 5.0-9.0; Units: UNITS; Status: F Test: SPECIFIC GRAVITY URINE AUTO; Value: 1.032; Range: 1.002-1.035; Status: F Test: PROTEIN, URINE AUTO; Value: 1+; Range: NEGATIVE; Abnormal: Above high normal; Units: mg/dL; Status: F Test: GLUCOSE, URINE (UA) AUTO; Value: NEGATIVE; Range: NEGATIVE; Units: mg/dL; Status: F Test: KETONE, URINE AUTO; Value: NEGATIVE; Range: NEGATIVE; Units: mg/dL; Status: F Test: UROBILINOGEN, URINE AUTO; Value: 4.0; Range: 0.0-2.0; Abnormal: Above high normal; Units: mg/dL; Status: F Test: BILIRUBIN, URINE AUTO; Value: 2+; Range: NEGATIVE; Abnormal: Above high normal; Status: F Test: NITRITE, URINE AUTO; Value: NEGATIVE; Range: NEGATIVE; Status: F Test: LEUKOCYTE ESTERASE, URINE AUTO; Value: NEGATIVE; Range: NEGATIVE; Status: F Test: BLOOD, URINE BLOOD; Value: NEGATIVE; Range: NEGATIVE; Status: F Test: WBC, URINE AUTO; Value: 2; Range: 0-3; Units: /HPF; Status: F Test: RBC, URINE AUTO; Value: 4; Range: 0-3; Abnormal: Above high normal; Units: /HPF; Status: F Test: BACTERIA, URINE AUTO; Value: NEGATIVE; Range: NEGATIVE; Status: F Test: SQUAMOUS EPITHELIAL CELL UR AU; Value: 0; Range: 0-6; Units: /HPF; Status: F Test: MUCUS, URINE; Value: LARGE; Range: NEGATIVE; Status: F Test: HYALINE CAST, URINE AUTO; Value: 0; Range: 0-1; Units: /LPF; Status: F Test: CALCIUM OXALATE CRYSTALS; Value: MODERATE; Range: NONE; Status: F Lab Order: Urine Culture; SPEC'M 05/12/16 15:20 Test: URINE CULTURE; Value: URINE CULTURE RESULT NO GROWTH; Status: F Lab Order: Amylase; SPEC'M 05/12/16 15:32 Test: AMYLASE; Value: 45; Range: 25-115; Units: U/L; Status: F Lab Order: Basic Metabolic Profile; SPEC'M 05/12/16 15:32 Test: GLUCOSE, FASTING; Value: 99; Range: 70-105; Units: MG/DL; Status: F Test: BLOOD UREA NITROGEN; Value: 15; Range: 7-18; Units: MG/DL; Status: F Test: CREATININE FOR GFR; Value: 1.00; Range: 0.70-1.30; Units: MG/DL; Status: F Test: GLOMERULAR FILTRATION RATE; Value: > 60.0; Range: >60; Status: F Test: SODIUM LEVEL; Value: 140; Range: 136-145; Units: MEQ/L; Status: F Test: POTASSIUM SERUM; Value: 4.5; Range: 3.5-5.1; Units: MEQ/L; Status: F Test: CHLORIDE LEVEL; Value: 105; Range: 98-107; Units: MEQ/L; Status: F Test: CARBON DIOXIDE LEVEL; Value: 27; Range: 21-32; Units: MEQ/L; Status: F Test: ANION GAP; Value: 8; Range: 8-16; Units: MEQ/L; Status: F Test: CALCIUM LEVEL; Value: 9.1; Range: 8.5-10.1; Units: MG/DL; Status: F Test Note: ; Units are mL/min/1.73 m2 Chronic Kidney Disease Staging per NKF: Stage I & II GFR >=60 Normal to Mildly Decreased Stage III GFR 30-59 Moderately Decreased Stage IV GFR 15-29 Severely Decreased Stage V GFR <15 Very Little GFR Left ESRD GFR <15 on RESIDENCE LEASING AGENT Lab Order: CBC with Diff; SPEC'M 05/12/16 15:32 Test: WHITE BLOOD COUNT; Value: 12.9; Range: 4.0-10.0; Abnormal: Above high normal; Units: K/mm3; Status: F Test: RED BLOOD COUNT; Value: 4.92; Range: 4.30-6.10; Units: M/mm3; Status: F Test: HEMOGLOBIN; Value: 14.8; Range: 14.0-18.0; Units: g/dl; Status: F Test: HEMATOCRIT; Value: 44.7; Range: 42.0-52.0; Units: %; Status: F Test: MEAN CORPUSCULAR VOLUME; Value: 90.9; Range: 80.0-96.0; Units: fl; Status: F Test: MEAN CORPUSCULAR HEMOGLOBIN; Value: 30.1; Range: 27.0-33.0; Units: pg; Status: F Test: MEAN CORPUSCULAR HGB CONC; Value: 33.2; Range: 32.0-36.5; Units: g/dl; Status: F Test: RED CELL DISTRIBUTION WIDTH; Value: 13.9; Range: 11.5-14.5; Units: %; Status: F Test: PLATELET COUNT, AUTOMATED; Value: 272; Range: 150-450; Units: k/mm3; Status: F Test: NEUTROPHILS %; Value: 79.0; Range: 36.0-66.0; Abnormal: Above high normal; Units: %; Status: F Test: LYMPH %; Value: 12.4; Range: 24.0-44.0; Abnormal: Below low normal; Units: %; Status: F Test: MONO %; Value: 5.0; Range: 0.0-5.0; Units: %; Status: F Test: EOS %; Value: 1.8; Range: 0.0-3.0; Units: %; Status: F Test: BASO %; Value: 0.8; Range: 0.0-1.0; Units: %; Status: F Test: LARGE UNSTAINED CELL %; Value: 1.0; Range: 0.0-4.0; Units: %; Status: F Test: NEUTROPHILS #; Value: 10.2; Range: 1.8-7.7; Abnormal: Above high normal; Units: K/mm3; Status: F Test: LYMPH #; Value: 1.7; Range: 1.5-4.5; Units: K/mm3; Status: F Test: MONO #; Value: 0.7; Range: 0.0-0.8; Units: K/mm3; Status: F Test: EOS #; Value: 0.2; Range: 0.0-0.50; Units: K/mm3; Status: F Test: BASO #; Value: 0.1; Range: 0.0-0.2; Units: K/mm3; Status: F Test: LARGE UNSTAINED CELL #; Value: 0.1; Range: 0.0-0.4; Units: K/mm3; Status: F Lab Order: Lipase; SPEC'M 05/12/16 15:32 Test: LIPASE; Value: 203; Range: 73-393; Units: U/L; Status: F Lab Order: Liver Profile; SPEC'M 05/12/16 15:32 Test: AST/SGOT; Value: 462; Range: 15-37; Abnormal: Above high normal; Units: U/L; Status: F Test: ALT/SGPT; Value: 983; Range: 12-78; Abnormal: Above high normal; Units: U/L; Status: F Test: ALKALINE PHOSPHATASE; Value: 311; Range: 45-117; Abnormal: Above high normal; Units: U/L; Status: F Test: BILIRUBIN,TOTAL; Value: 3.9; Range: 0.2-1.0; Abnormal: Above high normal; Units: MG/DL; Status: F Test: BILIRUBIN,DIRECT; Value: 3.3; Range: 0.0-0.2; Abnormal: Above high normal; Units: MG/DL; Status: F Test: TOTAL PROTEIN; Value: 7.4; Range: 6.4-8.2; Units: GM/DL; Status: F Test: ALBUMIN; Value: 4.1; Range: 3.2-5.2; Units: GM/DL; Status: F Test: ALBUMIN/GLOBULIN RATIO; Value: 1.24; Range: 1.00-1.93; Status: F Lab Order: Prothrombin Time Profile\E\INR; SPEC'M 05/12/16 15:32 Test: PROTHROMBIN TIME; Value: 12.7; Range: 12.3-14.5; Units: SECONDS; Status: F Test: INR; Value: 0.94; Status: F Test Note: ; THERAPUTIC HUMAN INR VALUES INDICATIONS NORMAL RANGES PROPHYLAXIS/TREATMENT OF: VENOUS THROMBOSIS 2.0-3.0 PULMONARY EMBOLISM 2.0-3.0 PREVENTION OF SYSTEMIC EMBOLISM FROM: TISSUE HEART VALVES 2.0-3.0 ACUTE MYOCARDIAL INFARCTION 2.0-3.0 VALVULAR HEART DISEASE 2.0-3.0 ATRIAL FIBRILLATION 2.0-3.0 MECHANICAL VALVES(HIGH RISK) 2.5-3.5 RECURRENT MYOCARDIAL INFARCTION 2.5-3.5 Lab Order: Hepatitis Profile; SPEC'M 05/12/16 15:31 Test: HEPATITIS C VIRUS MAXIM INDEX; Value: < 0.0; Range: <0.8; Units: INDEX; Status: F Test: HEPATITIS B SURFACE ANTIGEN; Value: NEGATIVE; Range: NEGATIVE; Status: F Test: HEPATITIS B CORE ANTIBODY IGM; Value: NEGATIVE; Range: NEGATIVE; Status: F Test: HEPATITIS A ANTIBODY IGM; Value: NEGATIVE; Range: NEGATIVE; Status: F Radiology Order: CT ABD & PELVIS: No Contrast Test: CT ABD & PELVIS: No Contrast REASON FOR EXAMINATION: Renal colic; Clinical: Right flank pain.; ; Findings:; Liver, spleen, pancreas, gallbladder, and bilateral adrenal glands are normal for; noncontrast examination. The kidneys are grossly unremarkable and without; perinephric stranding, hydroureteronephrosis, intrarenal or obstructing ureteral; calculi. The enteric system is without obstruction or acute inflammatory; process. Normal terminal ileum and appendix are identified in the right lower; quadrant. Pelvis demonstrates collapsed normal bladder and age appropriate; prostate/seminal vesicles. No pelvic fluid or ascites. No free air. No; adenopathy. Abdominal aorta normal caliber without aneurysm. Musculoskeletal; structures intact and without focal osseous abnormality. Lung bases are clear.; ; Impression:; Normal noncontrast CT of the abdomen and pelvis.; Specifically, normal appearance to the kidneys/ureters and bladder.; ; ; Signed by; Yusuf Connelly MD 05/12/2016 04:16 P; Radiology Order: US Gallbladder Test: US Gallbladder REASON FOR EXAMINATION: Biliary Colic; Clinical: Biliary colic .; ; Technique: Willams scale ultrasound using curved array transducer.; ; Findings: The liver demonstrates fatty infiltration without focal lesion. The; pancreas is incompletely evaluated due to interposed bowel gas. The gallbladder; is normal without gallstones, wall thickening or pericholecystic fluid. The; common bile duct is dilated to 15.5 mm without obvious choledocholithiasis or; cause mild associated intrahepatic biliary ductal dilatation cannot be excluded; as well. The right kidney is normal in reniform shape without hydronephrosis and; measures 12.8 x 5.6 x 5.1 cm. No ascites. 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 ke 18:06 Patient left the ED. ms2 18:06 Discharge Assessment: patient administered narcotics - no. The following High Risk ms2 Discharge criteria are identified: None. Discharged to home ambulatory, with parent. Condition: stable. Discharge instructions given to patient, parents Instructed on discharge instructions, follow up and referral plans. medication usage, no driving heavy equipment, no drinking with medication, Demonstrated understanding of instructions, medications, Pt was receptive of discharge instructions/ teaching. Prescriptions given X 2 faxed. Ultrasound Study completed. Property sent home with patient. Signatures: Dispatcher [employer] Andrea YoungRN RN ms2 Abhishek,Sorin,RN RN po Hair Rodriguez, PRINCIPAL ACCOUNT CLERK PRINCIPAL ACCOUNT CLERK Troy Alarcon RN RN mlb1 Faby Palacio, RADHA RN jc4 Lucas Hubbard, CORDUROY CUTTING SUPERVISOR CORDUROY CUTTING SUPERVISOR jlf Polina Glass, Chemical Engineer Unit sarChely Nathan, Reg Reg ks16 Uma Jeong, Reg Reg hs2 Corrections: (The following items were deleted from the chart) 18:33 18:32 BP 121 / 66; Pulse 70bpm; Resp 20bpm; Spontaneous; Pulse Ox 97% RA; Temp 98.3F ms2 Oral; Pain 0/10; ms2 18:33 18:32 PO 0, IV 300, (NS), Intake Total 300. ms2 ms2 18:35 18:06 No special radiology studies were completed ms2 ms2 Chart Complete MTDD
== END 2016-05-12 18:06 | disposition home or self-care (01) ==
LOC: M ED 14:10
DX: B17.9 Acute viral hepatitis, unspecified (principal); E78.00 Pure hypercholesterolemia, unspecified; D51.0 Vitamin B12 deficiency anemia due to intrinsic factor deficiency; Z79.899 Other long term (current) drug therapy
CPT/HCPCS: 74176; 76705; 80048; 80076; 81001; 82150; 83690; 85025; 85610; 86705; 86709; 86803; 87086; 87340; 96374; 96375; 99284; J1885; J2405

== ENCOUNTER → 2016-05-17 | Outpatient (REF) | payer MEDICAID ==
[2016-05-17 11:43] LABS: ALBUMIN/GLOBULIN RATIO 1.11 (1.00-1.93); ALKALINE PHOSPHATASE 258 U/L (45-117); ALT/SGPT 438 U/L (12-78); ANION GAP 13 MEQ/L (8-16); AST/SGOT 146 U/L (15-37); BILIRUBIN,TOTAL 0.8 MG/DL (0.2-1.0); BLOOD UREA NITROGEN 18 MG/DL (7-18); CALCIUM LEVEL 9.3 MG/DL (8.5-10.1); CARBON DIOXIDE LEVEL 26 MEQ/L (21-32); CHLORIDE LEVEL 104 MEQ/L (98-107); CHOLESTEROL LEVEL 202 MG/DL (<200); CREATININE FOR GFR 0.94 MG/DL (0.70-1.30); FREE T4 0.96 NG/DL (0.76-1.46); GLOMERULAR FILTRATION RATE > 60.0 (>60); GLUCOSE, FASTING 85 MG/DL (70-105); POTASSIUM SERUM 4.8 MEQ/L (3.5-5.1); SODIUM LEVEL 143 MEQ/L (136-145); TOTAL PROTEIN 7.6 GM/DL (6.4-8.2); TRIGLYCERIDES LEVEL 318 MG/DL (<150)
== END ==
LOC: M SFHCPLAZ 08:08
PROVIDERS: ATTEND Family Medicine
DX: E78.5 Hyperlipidemia, unspecified (principal)

== ENCOUNTER → 2016-05-29 | Outpatient (REF) | payer MEDICAID ==
[2016-05-29 12:44] LABS: ALBUMIN 4.2 GM/DL (3.2-5.2); ALBUMIN/GLOBULIN RATIO 1.27 (1.00-1.93); BILIRUBIN,DIRECT 0.3 MG/DL (0.0-0.2); BILIRUBIN,TOTAL 0.5 MG/DL (0.2-1.0); TOTAL PROTEIN 7.5 GM/DL (6.4-8.2)
== END ==
LOC: M SFHCPLAZ 09:03
PROVIDERS: ATTEND Family Medicine
DX: E55.9 Vitamin D deficiency, unspecified (principal); E78.5 Hyperlipidemia, unspecified; E66.9 Obesity, unspecified

== ENCOUNTER → 2016-06-24 | Outpatient (REF) | payer MEDICARE | END | disposition home or self-care (01) | LOC: M LAB REF 16:03 | PROVIDERS: ATTEND Physician Assistant | DX: L72.3 Sebaceous cyst (principal) ==

== ENCOUNTER → 2016-09-20 | Outpatient (REF) | payer MEDICARE ==
[2016-09-20 09:53] LABS: ALBUMIN 4.1 GM/DL (3.2-5.2); ALBUMIN/GLOBULIN RATIO 1.28 (1.00-1.93); ALKALINE PHOSPHATASE 98 U/L (45-117); ALT/SGPT 72 U/L (12-78); ANION GAP 7 MEQ/L (8-16); AST/SGOT 34 U/L (15-37); BILIRUBIN,DIRECT 0.1 MG/DL (0.0-0.2); BILIRUBIN,TOTAL 0.4 MG/DL (0.2-1.0); BLOOD UREA NITROGEN 19 MG/DL (7-18); CALCIUM LEVEL 8.7 MG/DL (8.5-10.1); CARBON DIOXIDE LEVEL 28 MEQ/L (21-32); CHLORIDE LEVEL 106 MEQ/L (98-107); CHOLESTEROL LEVEL 145 MG/DL (<200); CREATININE FOR GFR 1.03 MG/DL (0.70-1.30); GLOMERULAR FILTRATION RATE > 60.0 (>60); GLUCOSE, FASTING 89 MG/DL (70-105); POTASSIUM SERUM 4.3 MEQ/L (3.5-5.1); SODIUM LEVEL 141 MEQ/L (136-145); TOTAL PROTEIN 7.3 GM/DL (6.4-8.2); TRIGLYCERIDES LEVEL 233 MG/DL (<150)
== END ==
LOC: M SFHCPLAZ 09:21
PROVIDERS: ATTEND Family Medicine
DX: E55.9 Vitamin D deficiency, unspecified (principal); E78.5 Hyperlipidemia, unspecified; E66.9 Obesity, unspecified

== ENCOUNTER 2016-12-31 16:23 | Inpatient (IN) | payer MEDICARE, MEDICAID ==
[~2016-12-31] VITALS: Ht 182.9 cm; Wt 113.6 kg
[2016-12-31] MEDS ORDERED: LEVO25TA5 PO (16:38)
[2016-12-31] MEDS ORDERED: PHEN37.5 PO (16:38)
[2016-12-31] MEDS ORDERED: ATOR1TAB21 PO (16:38)
[2016-12-31] MEDS ORDERED: NS 1,000 ML IV ONE ×2 (17:00→18:00)
[2016-12-31 17:35] LABS: CALCIUM LEVEL 10.3 MG/DL (8.5-10.1); CREATININE FOR GFR 2.06 MG/DL (0.70-1.30); GLOMERULAR FILTRATION RATE 39.3 (>60); POTASSIUM SERUM 3.8 MEQ/L (3.5-5.1)
[2016-12-31 17:40] LABS: BASO % 0.3 % (0.0-1.0); EOS % 0.2 % (0.0-3.0); LARGE UNSTAINED CELL # 0.1 K/mm3 (0.0-0.4); LARGE UNSTAINED CELL % 0.9 % (0.0-4.0); LYMPH # 1.6 K/mm3 (1.5-4.5); LYMPH % 10.3 % (24.0-44.0); MEAN CORPUSCULAR HEMOGLOBIN 31.9 pg (27.0-33.0); MEAN CORPUSCULAR HGB CONC 35.2 g/dl (32.0-36.5); MEAN CORPUSCULAR VOLUME 90.7 fl (80.0-96.0); MONO # 0.9 K/mm3 (0.0-0.8); MONO % 6.1 % (0.0-5.0); NEUTROPHILS % 82.1 % (36.0-66.0); PLATELET COUNT, AUTOMATED 274 k/mm3 (150-450); RED CELL DISTRIBUTION WIDTH 13.2 % (11.5-14.5); WHITE BLOOD COUNT 14.6 K/mm3 (4.0-10.0)
[2016-12-31] MEDS ORDERED: VITA100072 PO (18:20)
[2016-12-31] MEDS ORDERED: VITA200038 PO (18:20)
[2016-12-31] MEDS ORDERED: ONDANSETRON 4 MG TAB (S0181) PO PRN (19:30)
[2016-12-31] MEDS ORDERED: ONDANSETRON 4MG/2ML VIAL (J2405) IV PRN (19:30)
[2016-12-31] MEDS ORDERED: ACETAMINOPHEN TAB 650MG DOSE (2X325MG) PO PRN (19:30)
--- NOTE | 2016-12-31 19:33 | HPEPDOC ---
Medical History and Physical Date of Admission History and Physical HISTORY AND PHYSICAL Date of admission: 12/31/2016 PCP: Dr. Tremayne Elias Chief complaint: Tightness in his arms and legs HPI: 36-year-old male with an NAFLD, psoriasis, hyperlipidemia, hypothyroidism, obesity, prediabetes, mild cognitive impairment who presented to the emergency department with tightness in his extremities. 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 He states he has worked the last 2 days in a row, and has had to do a lot of heavy lifting of boxes. He states that when he arrived home from work [employer], he had tightness in his arms and legs so he got out of his car and laid down on the grass. The lady next door saw him and called EMS as well as his mother. The ambulance brought him to the emergency department where he was found to have rhabdomyolysis and acute kidney injury. Upon my interview with the patient, he states that he feels entirely better now and nothing is bothering him. He does note that last night he had some back pain and took an Aleve, but he states that he does not take Aleve regularly. When asked if he had hydrated well today, he states that he drank a lot of diet soda. Past medical history: NAFLD, psoriasis, hyperlipidemia, hypothyroidism, obesity , prediabetes, mild cognitive impairment Past surgical history: Vasectomy, pilonidal cyst, wisdom teeth Family history: Coronary artery disease, hypothyroidism, hyperlipidemia, melanoma Social history: The patient lives alone and works at [employer]. He works approximately 14 hours per week. He has never used any tobacco and does not use drugs. He endorses drinking an occasional alcoholic drink. Allergies: No known drug allergies Review of systems: General: Negative for fever and chills Eyes: Negative for vision changes and ocular discharge ENT: Negative for sore throat and nose bleed Cardiovascular: Negative for chest pain and palpitations Respiratory: Negative for cough and shortness of breath GI: Negative for nausea, vomiting, diarrhea, constipation Musculoskeletal: Positive for back pain last night that has now resolved Skin: And negative for rash Neuro: Negative for headache, dizziness, numbness, tingling Psych: Negative for depression and suicidal ideation Endocrine: Negative for polyuria : Negative for dysuria Heme: Negative for bruising and bleeding Home meds: See below Physical exam: Vital signs: Vital Sign - Last 24 Hours 12/31/16 12/31/16 12/31/16 16:34 17:49 18:52 Temp 98.8 99.5 Pulse 121 88 Resp 20 16 B/P (MAP) 140/99 (113) 131/75 (93) Pulse Ox 97 99 O2 Delivery Room Air Room Air Gen.: awake, alert, no acute distress Eyes: Extraocular movements intact, normal sclera ENT: Moist mucous membranes Cardiovascular: RRR, no murmurs rubs or gallops Lungs: clear to auscultation bilaterally, no rales, rhonchi, or wheeze Abdomen: Soft, NT/ND, normal BS Musculoskeletal: normal range of motion Extremities: No peripheral edema Neuro: alert and oriented 3, normal speech, no focal deficits Psych: Normal mood with congruent affect Labs and radiology: See below CK 1513 BUN 25, creatinine 2.06 WBC 14.6 Assessment and plan: 36-year-old male with an NAFLD, psoriasis, hyperlipidemia, hypothyroidism, obesity, prediabetes, mild cognitive impairment who presented to the emergency department with tightness in his extremities. He is admitted with rhabdomyolysis and acute kidney injury. 1. Rhabdomyolysis: Likely secondary to heavy lifting at work for the past 2 days. Continue IV fluids and recheck CK in the morning. 2. Acute kidney injury: The patient has a previously normal creatinine, but upon presentation, it is 2.06. We will continue IV fluids and recheck in the morning. 3. Hypothyroidism: Continue home Synthroid. 4. Hyperlipidemia: Hold home Lipitor. 5. Leukocytosis: It is unclear why the patient's white count is elevated. He is currently afebrile with no signs and symptoms of infection. We will continue to trend. DVT prophylaxis: SCDs Dispo: admitted as an inpatient to the service of Dr. Tremayne Elias CODE STATUS: Full code Vital Signs Vital Signs Date Time Temp Pulse Resp B/P (MAP) Pulse Ox O2 Delivery O2 Flow Rate FiO2 12/31/16 18:52 99.5 88 16 131/75 (93) 99 Room Air Laboratory Data Labs 24H Laboratory Tests 2 12/31/16 16:54: Myoglobin 484H 12/31/16 16:55: White Blood Count 14.6H, Red Blood Count 4.97, Hemoglobin 15.9, Hematocrit 45.0 , Mean Corpuscular Volume 90.7, Mean Corpuscular Hemoglobin 31.9, Mean Corpuscular Hemoglobin Concent 35.2, Red Cell Distribution Width 13.2, Platelet Count 274, Neutrophils (%) (Auto) 82.1H, Lymphocytes (%) (Auto) 10.3L, Monocytes (%) (Auto) 6.1H, Eosinophils (%) (Auto) 0.2, Basophils (%) (Auto) 0.3 , Neutrophils # (Auto) 12.0H, Lymphocytes # (Auto) 1.6, Monocytes # (Auto) 0.9H , Eosinophils # (Auto) 0.0, Basophils # (Auto) 0.0, Large Unclassified Cells % 0.9, Large Unclassified Cells # 0.1, Anion Gap 12, Glomerular Filtration Rate 39.3L, Blood Urea Nitrogen 25H, Creatinine 2.06H, Sodium Level 138, Potassium Level 3.8, Chloride Level 106, Carbon Dioxide Level 20L, Calcium Level 10.3H, Total Creatine Kinase 1513H 12/31/16 18:10: Urine Myoglobin POSITIVE CBC/BMP Laboratory Tests 12/31/16 16:55 Red Blood Count 4.97, Mean Corpuscular Volume 90.7, Mean Corpuscular Hemoglobin 31.9, Mean Corpuscular Hemoglobin Concent 35.2, Red Cell Distribution Width 13.2 , Neutrophils (%) (Auto) 82.1 H, Lymphocytes (%) (Auto) 10.3 L, Monocytes (%) ( Auto) 6.1 H, Eosinophils (%) (Auto) 0.2, Basophils (%) (Auto) 0.3, Neutrophils # (Auto) 12.0 H, Lymphocytes # (Auto) 1.6, Monocytes # (Auto) 0.9 H, Eosinophils # (Auto) 0.0, Basophils # (Auto) 0.0, Calcium Level 10.3 H Home Medications Scheduled Atorvastatin Calcium (Atorvastatin Calcium) 20 Mg Tab, 20 MG PO QHS Cholecalciferol (Vitamin D-3) 2,000 Unit Tab, 2,000 UNIT PO DAILY Cyanocobalamin (Vitamin B12) 1,000 Mcg Tab, 1,000 MCG PO DAILY Levothyroxine Sodium (Synthroid) 25 Mcg Tab, 25 MCG PO QAM Phentermine HCl (Phentermine HCl) 37.5 Mg Tab, 37.5 MG PO QAM Allergies Coded Allergies: No Known Drug Allergy (Unverified Allergy, Unknown, 08/17/12) EVERETT ACEVEDO Dec 31, 2016 19:33
[2016-12-31 21:00] VITALS: BP 135/78
[2016-12-31] MEDS: NS 1,000 ML IV SCH (21:39)
[2017-01-01] VITALS: BP 123/60
[2017-01-01] MEDS: LEVOTHYROXINE 25MCG TABLET (0.025MG) PO SCH (05:31)
[2017-01-01] MEDS: NS 1,000 ML IV SCH ×3 (05:32→20:13)
[2017-01-01 06:53] LABS: BASO % 0.5 % (0.0-1.0); EOS # 0.5 K/mm3 (0.0-0.50); EOS % 5.7 % (0.0-3.0); LARGE UNSTAINED CELL # 0.1 K/mm3 (0.0-0.4); LYMPH # 1.6 K/mm3 (1.5-4.5); LYMPH % 16.1 % (24.0-44.0); MEAN CORPUSCULAR HEMOGLOBIN 31.6 pg (27.0-33.0); MEAN CORPUSCULAR HGB CONC 34.2 g/dl (32.0-36.5); MEAN CORPUSCULAR VOLUME 92.2 fl (80.0-96.0); MONO # 0.6 K/mm3 (0.0-0.8); MONO % 6.5 % (0.0-5.0); NEUTROPHILS # 6.4 K/mm3 (1.8-7.7); NEUTROPHILS % 70.1 % (36.0-66.0); PLATELET COUNT, AUTOMATED 214 k/mm3 (150-450); RED CELL DISTRIBUTION WIDTH 13.2 % (11.5-14.5); WHITE BLOOD COUNT 9.2 K/mm3 (4.0-10.0)
[2017-01-01 07:20] LABS: ANION GAP 8 MEQ/L (8-16); BLOOD UREA NITROGEN 16 MG/DL (7-18); CARBON DIOXIDE LEVEL 25 MEQ/L (21-32); CHLORIDE LEVEL 109 MEQ/L (98-107); CREATININE FOR GFR 1.06 MG/DL (0.70-1.30); GLOMERULAR FILTRATION RATE > 60.0 (>60); GLUCOSE, FASTING 92 MG/DL (70-105); MAGNESIUM LEVEL 1.9 MG/DL (1.8-2.4); POTASSIUM SERUM 3.6 MEQ/L (3.5-5.1); SODIUM LEVEL 142 MEQ/L (136-145)
[2017-01-01 07:30] VITALS: BP 141/65
[2017-01-01] MEDS: VITAMIN D 1,000 INTERNATIONAL UNITS TABLET PO SCH (09:02)
[2017-01-01] MEDS: CYANOCOBALAMIN 500 MCG TAB PO SCH (09:02)
--- NOTE | 2017-01-01 14:39 | IPNPDOC ---
Subjective Date Seen The patient was seen on 01/01/17. Subjective Chief Complaint/HPI The patient is a 36-year-old male admitted with a reason for visit of Acute Kidney Failure, Rhabdomyolysis. Events since last encounter Patient denies any tightness or pain in his limbs this morning and states he feels "fine". 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 He drinks mostly diet soda. Constitutional: Denies: Chills, Fever Eyes: Denies: Pain ENT: Denies: Head Aches Pulmonary: Denies: Dyspnea Cardiovascular: Denies: Chest Pain Gastrointestinal: Denies: Nausea, Vomiting, Abdominal Pain Genitourinary: Denies: Dysuria Musculoskeletal: Denies: Neck Pain, Back Pain, Arm Pain, Leg Pain Neurological: Denies: Weakness Objective Physical Examination General Exam: Positive: Alert, Cooperative, No Acute Distress Eye Exam: Positive: PERRLA, Conjunctiva & lids normal ENT Exam: Positive: Atraumatic, Mucous membr. moist/pink Chest Exam: Positive: Clear to auscultation, Normal air movement Heart Exam: Positive: Rate Normal, Normal S1, Normal S2, Negative: Murmurs Abdomen Exam: Positive: Soft, Negative: Tenderness Extremity Exam: Positive: Normal pulses, Negative: Edema, Tenderness, Swelling Skin Exam: Positive: Nl turgor and temperature Neuro Exam: Positive: Strength at 5/5 X4 ext, Normal Tone, Cranial Nerves 3-12 NL Psych Exam: Positive: Mood NL Assessment /Plan Problems (1) Rhabdomyolysis Status: Acute Response to Treatment: Stable Problem Text: Likely due to 2 days in a row of heavy lifting in an individual who is overweight and not generally very active. CK slightly improved today; continue IV NS and if CK is improving tomorrow, he can likely be discharged home. (2) Acute kidney failure Status: Resolved Problem Text: Resolved with IV NS overnight. (3) Leukocytosis Status: Resolved Plan/VTE VTE Prophylaxis Ordered?: No VTE Exclusion Mechanical Proph: Low Risk for VTE (SEQs) VS, I&O, 24H, Fishbone Vital Signs/I&O Vital Signs Date Time Temp Pulse Resp B/P (MAP) Pulse Ox O2 Delivery O2 Flow Rate FiO2 01/01/17 07:30 97.7 65 18 141/65 (90) 98 Room Air I&O- Last 24 Hours up to 6 AM 01/01/17 06:00 Intake Total 180 ml Output Total 400 ml Balance -220 ml Laboratory Data 24H LABS Laboratory Tests 2 12/31/16 16:54: Myoglobin 484H 12/31/16 16:55: White Blood Count 14.6H, Red Blood Count 4.97, Hemoglobin 15.9, Hematocrit 45.0 , Mean Corpuscular Volume 90.7, Mean Corpuscular Hemoglobin 31.9, Mean Corpuscular Hemoglobin Concent 35.2, Red Cell Distribution Width 13.2, Platelet Count 274, Neutrophils (%) (Auto) 82.1H, Lymphocytes (%) (Auto) 10.3L, Monocytes (%) (Auto) 6.1H, Eosinophils (%) (Auto) 0.2, Basophils (%) (Auto) 0.3 , Neutrophils # (Auto) 12.0H, Lymphocytes # (Auto) 1.6, Monocytes # (Auto) 0.9H , Eosinophils # (Auto) 0.0, Basophils # (Auto) 0.0, Large Unclassified Cells % 0.9, Large Unclassified Cells # 0.1, Anion Gap 12, Glomerular Filtration Rate 39.3L, Blood Urea Nitrogen 25H, Creatinine 2.06H, Sodium Level 138, Potassium Level 3.8, Chloride Level 106, Carbon Dioxide Level 20L, Calcium Level 10.3H, Total Creatine Kinase 1513H 12/31/16 18:10: Urine Myoglobin POSITIVE 01/01/17 06:33: White Blood Count 9.2, Red Blood Count 4.12L, Hemoglobin 13.0#L, Hematocrit 38.0L, Mean Corpuscular Volume 92.2, Mean Corpuscular Hemoglobin 31.6, Mean Corpuscular Hemoglobin Concent 34.2, Red Cell Distribution Width 13.2, Platelet Count 214, Neutrophils (%) (Auto) 70.1H, Lymphocytes (%) (Auto) 16.1L, Monocytes (%) (Auto) 6.5H, Eosinophils (%) (Auto) 5.7H, Basophils (%) (Auto) 0.5 , Neutrophils # (Auto) 6.4, Lymphocytes # (Auto) 1.6, Monocytes # (Auto) 0.6, Eosinophils # (Auto) 0.5, Basophils # (Auto) 0.0, Large Unclassified Cells % 1.0 , Large Unclassified Cells # 0.1, Anion Gap 8, Glomerular Filtration Rate > 60.0 , Blood Urea Nitrogen 16, Creatinine 1.06, Sodium Level 142, Potassium Level 3.6 , Chloride Level 109H, Carbon Dioxide Level 25, Calcium Level 8.0#L, Total Creatine Kinase 1480H, Magnesium Level 1.9 CBC/BMP Laboratory Tests 12/31/16 16:55 Red Blood Count 4.97, Mean Corpuscular Volume 90.7, Mean Corpuscular Hemoglobin 31.9, Mean Corpuscular Hemoglobin Concent 35.2, Red Cell Distribution Width 13.2 , Neutrophils (%) (Auto) 82.1 H, Lymphocytes (%) (Auto) 10.3 L, Monocytes (%) ( Auto) 6.1 H, Eosinophils (%) (Auto) 0.2, Basophils (%) (Auto) 0.3, Neutrophils # (Auto) 12.0 H, Lymphocytes # (Auto) 1.6, Monocytes # (Auto) 0.9 H, Eosinophils # (Auto) 0.0, Basophils # (Auto) 0.0, Calcium Level 10.3 H 01/01/17 06:33 Red Blood Count 4.12 L, Mean Corpuscular Volume 92.2, Mean Corpuscular Hemoglobin 31.6, Mean Corpuscular Hemoglobin Concent 34.2, Red Cell Distribution Width 13.2, Neutrophils (%) (Auto) 70.1 H, Lymphocytes (%) (Auto) 16.1 L, Monocytes (%) (Auto) 6.5 H, Eosinophils (%) (Auto) 5.7 H, Basophils (%) (Auto) 0.5, Neutrophils # (Auto) 6.4, Lymphocytes # (Auto) 1.6, Monocytes # ( Auto) 0.6, Eosinophils # (Auto) 0.5, Basophils # (Auto) 0.0, Calcium Level 8.0 # L SALO GALLOWAY MD Jan 01, 2017 14:39
[2017-01-01 15:51] VITALS: BP 126/72
[2017-01-01 20:00] VITALS: BP 133/63
[2017-01-02] VITALS: BP 125/79
[2017-01-02] MEDS: NS 1,000 ML IV SCH (05:13)
[2017-01-02] MEDS: LEVOTHYROXINE 25MCG TABLET (0.025MG) PO SCH (05:14)
[2017-01-02 07:09] LABS: BASO % 0.5 % (0.0-1.0); EOS # 0.4 K/mm3 (0.0-0.50); EOS % 6.4 % (0.0-3.0); LARGE UNSTAINED CELL # 0.1 K/mm3 (0.0-0.4); LARGE UNSTAINED CELL % 1.9 % (0.0-4.0); LYMPH # 2.1 K/mm3 (1.5-4.5); LYMPH % 29.2 % (24.0-44.0); MEAN CORPUSCULAR HEMOGLOBIN 30.9 pg (27.0-33.0); MEAN CORPUSCULAR HGB CONC 34.5 g/dl (32.0-36.5); MEAN CORPUSCULAR VOLUME 89.4 fl (80.0-96.0); MONO # 0.6 K/mm3 (0.0-0.8); MONO % 8.1 % (0.0-5.0); NEUTROPHILS # 3.7 K/mm3 (1.8-7.7); NEUTROPHILS % 53.9 % (36.0-66.0); PLATELET COUNT, AUTOMATED 215 k/mm3 (150-450); RED CELL DISTRIBUTION WIDTH 13.1 % (11.5-14.5); WHITE BLOOD COUNT 6.9 K/mm3 (4.0-10.0)
[2017-01-02 07:49] LABS: ANION GAP 9 MEQ/L (8-16); BLOOD UREA NITROGEN 13 MG/DL (7-18); CALCIUM LEVEL 8.4 MG/DL (8.5-10.1); CARBON DIOXIDE LEVEL 23 MEQ/L (21-32); CHLORIDE LEVEL 116 MEQ/L (98-107); CREATININE FOR GFR 0.82 MG/DL (0.70-1.30); GLOMERULAR FILTRATION RATE > 60.0 (>60); GLUCOSE, FASTING 92 MG/DL (70-105); MAGNESIUM LEVEL 2.2 MG/DL (1.8-2.4); POTASSIUM SERUM 4.4 MEQ/L (3.5-5.1); SODIUM LEVEL 148 MEQ/L (136-145)
[2017-01-02 09:15] VITALS: BP 131/79
[2017-01-02] MEDS: VITAMIN D 1,000 INTERNATIONAL UNITS TABLET PO SCH (09:18)
[2017-01-02] MEDS: CYANOCOBALAMIN 500 MCG TAB PO SCH (09:18)
--- NOTE | 2017-01-03 10:51 | DSES ---
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 He has been doing a lot of heavy lifting of boxes at work. He came home, had tightness on his arms and legs, so uncomfortable that he got out of his car and lay down in the grass. He was brought to the hospital by ambulance, was found to have rhabdomyolysis and acute kidney injury. He had taken some Aleve that day as well for back pain, but otherwise does not normally take non-steroidal anti-inflammatory drugs (NSAIDs). He drank quite a lot of diet soda that day but no other real fluids. PAST MEDICAL HISTORY: Significant for nonalcoholic fatty liver disease, psoriasis, hyperlipidemia, hypothyroidism, obesity, prediabetes, mild cognitive impairment. PERTINENT LABORATORIES ON ADMISSION: Sodium 138, potassium 3.8, BUN 25, creatinine 2.06, glucose 99, calcium 10.3, myoglobin 484. CPK was 1513. White count 14.6, hemoglobin 15.9, platelets 274,000. Urine myoglobin was positive. HOSPITAL COURSE: 1. The patient was admitted for rhabdomyolysis, likely due to two days in a row of very heavy lifting in an overweight individual who is not normally very active. He was given intravenous (IV) fluids. His creatine phosphokinase (CPK) has trended down; on the date of discharge it was of 1055. His muscle aching and discomfort have completely resolved. He is eating and drinking well and has no other complaints. His atorvastatin and Phentermine have been discontinued and will remain on hold. Defer decision to restart to Dr. Elias as an outpatient. 2. Acute kidney failure. His renal function normalized with IV fluids within 24 hours and has remained normal. He is eating and drinking well. 3. Leukocytosis. No etiology to suggest infectious process. Likely due to acute phase reaction from the stress of the rhabdomyolysis and this normalized without antibiotics or other treatment. DISPOSITION: He is stable for discharge home. He will followup with Dr. Elias next week. Diet regular. Activity as tolerated, but he should avoid strenuous lifting or exertion until followup with Dr. Elias. He is encouraged to increase oral fluid intake and avoid caffeinated beverages or soda. Medications - vitamin D 2000 international units daily - B12 1000 mcg daily - levothyroxine 25 mcg daily He is advised to stop lisinopril and stop Phentermine. He is to avoid nonsteroidal anti-inflammatories and acetaminophen. DISCHARGE DIAGNOSES: 1. Rhabdomyolysis. 2. Acute kidney injury. 3. History of hypercholesterolemia. 4. Obesity. 5. Prediabetes.
== END 2017-01-02 09:50 | disposition home or self-care (01) | DRG 558 ==
LOC: M ED 16:23 → M ED INP 19:27 → M PED 21:03
PROVIDERS: ADMIT Hospitalist; ATTEND Family Medicine
DX: M62.82 Rhabdomyolysis (principal); N17.9 Acute kidney failure, unspecified; K76.0 Fatty (change of) liver, not elsewhere classified; L40.9 Psoriasis, unspecified; E78.5 Hyperlipidemia, unspecified; E03.9 Hypothyroidism, unspecified; R73.03 Prediabetes; G31.84 Mild cognitive impairment of uncertain or unknown etiology; E66.9 Obesity, unspecified; D72.829 Elevated white blood cell count, unspecified; Z79.899 Other long term (current) drug therapy; Z68.34 Body mass index [BMI] 34.0-34.9, adult

== ENCOUNTER → 2017-01-03 | Outpatient (REF) | payer MEDICARE, MEDICAID ==
[~2017-01-03] MED LIST: ATOR1TAB21 PO; LEVO25TA5 PO; PHEN37.5 PO; VITA100072 PO; VITA200038 PO
[2017-01-03 12:10] LABS: BASO % 0.5 % (0.0-1.0); EOS # 0.2 K/mm3 (0.0-0.50); EOS % 2.9 % (0.0-3.0); LARGE UNSTAINED CELL # 0.1 K/mm3 (0.0-0.4); LARGE UNSTAINED CELL % 1.7 % (0.0-4.0); LYMPH # 2.3 K/mm3 (1.5-4.5); LYMPH % 28.9 % (24.0-44.0); MEAN CORPUSCULAR HEMOGLOBIN 31.3 pg (27.0-33.0); MEAN CORPUSCULAR HGB CONC 34.6 g/dl (32.0-36.5); MEAN CORPUSCULAR VOLUME 90.4 fl (80.0-96.0); MONO # 0.5 K/mm3 (0.0-0.8); MONO % 6.1 % (0.0-5.0); NEUTROPHILS # 4.4 K/mm3 (1.8-7.7); NEUTROPHILS % 59.8 % (36.0-66.0); PLATELET COUNT, AUTOMATED 251 k/mm3 (150-450); RED CELL DISTRIBUTION WIDTH 13.1 % (11.5-14.5); WHITE BLOOD COUNT 7.4 K/mm3 (4.0-10.0)
[2017-01-03 12:37] LABS: VITAMIN B12 LEVEL 553 PG/ML (247-911)
[2017-01-03 13:10] LABS: ALBUMIN 3.9 GM/DL (3.2-5.2); ALKALINE PHOSPHATASE 87 U/L (45-117); ALT/SGPT 120 U/L (12-78); ANION GAP 8 MEQ/L (8-16); AST/SGOT 74 U/L (15-37); BILIRUBIN,TOTAL 0.5 MG/DL (0.2-1.0); BLOOD UREA NITROGEN 15 MG/DL (7-18); CALCIUM LEVEL 9.1 MG/DL (8.5-10.1); CARBON DIOXIDE LEVEL 27 MEQ/L (21-32); CHLORIDE LEVEL 106 MEQ/L (98-107); CREATININE FOR GFR 0.82 MG/DL (0.70-1.30); GLOMERULAR FILTRATION RATE > 60.0 (>60); GLUCOSE, FASTING 76 MG/DL (70-105); POTASSIUM SERUM 4.4 MEQ/L (3.5-5.1); SODIUM LEVEL 141 MEQ/L (136-145); TOTAL PROTEIN 6.9 GM/DL (6.4-8.2)
== END ==
LOC: M SFHCPLAZ 09:21
PROVIDERS: ATTEND Family Medicine
DX: I10 Essential (primary) hypertension (principal); E03.9 Hypothyroidism, unspecified; E66.9 Obesity, unspecified; Z79.899 Other long term (current) drug therapy

== ENCOUNTER → 2017-02-07 | Outpatient (REF) | payer MEDICARE, MEDICAID ==
[2017-02-07 13:03] LABS: ALBUMIN 4.2 GM/DL (3.2-5.2); ALBUMIN/GLOBULIN RATIO 1.35 (1.00-1.93); ALKALINE PHOSPHATASE 91 U/L (45-117); ALT/SGPT 63 U/L (12-78); ANION GAP 8 MEQ/L (8-16); AST/SGOT 34 U/L (15-37); BILIRUBIN,TOTAL 0.3 MG/DL (0.2-1.0); BLOOD UREA NITROGEN 20 MG/DL (7-18); CALCIUM LEVEL 9.7 MG/DL (8.5-10.1); CARBON DIOXIDE LEVEL 27 MEQ/L (21-32); CHLORIDE LEVEL 104 MEQ/L (98-107); CHOLESTEROL LEVEL 199 MG/DL (<200); CREATININE FOR GFR 0.85 MG/DL (0.70-1.30); GLOMERULAR FILTRATION RATE > 60.0 (>60); GLUCOSE, FASTING 85 MG/DL (70-105); POTASSIUM SERUM 4.5 MEQ/L (3.5-5.1); SODIUM LEVEL 139 MEQ/L (136-145); TOTAL PROTEIN 7.3 GM/DL (6.4-8.2); TRIGLYCERIDES LEVEL 404 MG/DL (<150)
== END ==
LOC: M SFHCPLAZ 08:33
PROVIDERS: ATTEND Family Medicine
DX: E78.5 Hyperlipidemia, unspecified (principal)

== ENCOUNTER → 2017-03-27 | Outpatient (REF) | payer MEDICARE, MEDICAID ==
[2017-03-27 12:18] LABS: ALBUMIN 4.1 GM/DL (3.2-5.2); ALBUMIN/GLOBULIN RATIO 1.21 (1.00-1.93); ALKALINE PHOSPHATASE 102 U/L (45-117); ALT/SGPT 61 U/L (12-78); ANION GAP 8 MEQ/L (8-16); AST/SGOT 28 U/L (7-37); BILIRUBIN,TOTAL 0.5 MG/DL (0.2-1.0); BLOOD UREA NITROGEN 15 MG/DL (7-18); CALCIUM LEVEL 9.5 MG/DL (8.5-10.1); CARBON DIOXIDE LEVEL 30 MEQ/L (21-32); CHLORIDE LEVEL 105 MEQ/L (98-107); CHOLESTEROL LEVEL 142 MG/DL (<200); GLOMERULAR FILTRATION RATE > 60.0 (>60); GLUCOSE, FASTING 85 MG/DL (70-105); POTASSIUM SERUM 4.4 MEQ/L (3.5-5.1); SODIUM LEVEL 143 MEQ/L (136-145); TOTAL PROTEIN 7.5 GM/DL (6.4-8.2); TRIGLYCERIDES LEVEL 358 MG/DL (<150)
== END ==
LOC: M SFHCPLAZ 07:38
PROVIDERS: ATTEND Family Medicine
DX: E66.9 Obesity, unspecified (principal); L70.9 Acne, unspecified; E78.5 Hyperlipidemia, unspecified; R73.01 Impaired fasting glucose; K76.0 Fatty (change of) liver, not elsewhere classified; E53.8 Deficiency of other specified B group vitamins; E03.9 Hypothyroidism, unspecified

== ENCOUNTER → 2017-05-06 | Outpatient (REF) | payer MEDICARE, MEDICAID ==
[2017-05-06 11:41] LABS: ALBUMIN 4.1 GM/DL (3.2-5.2); ALBUMIN/GLOBULIN RATIO 1.21 (1.00-1.93); ALKALINE PHOSPHATASE 124 U/L (45-117); ALT/SGPT 86 U/L (12-78); ANION GAP 7 MEQ/L (8-16); AST/SGOT 53 U/L (7-37); BILIRUBIN,TOTAL 0.4 MG/DL (0.2-1.0); BLOOD UREA NITROGEN 15 MG/DL (7-18); CALCIUM LEVEL 9.1 MG/DL (8.5-10.1); CARBON DIOXIDE LEVEL 27 MEQ/L (21-32); CHLORIDE LEVEL 107 MEQ/L (98-107); CHOLESTEROL LEVEL 163 MG/DL (<200); CREATININE FOR GFR 0.85 MG/DL (0.70-1.30); GLOMERULAR FILTRATION RATE > 60.0 (>60); GLUCOSE, FASTING 91 MG/DL (70-105); POTASSIUM SERUM 4.5 MEQ/L (3.5-5.1); SODIUM LEVEL 141 MEQ/L (136-145); TOTAL PROTEIN 7.5 GM/DL (6.4-8.2); TRIGLYCERIDES LEVEL 551 MG/DL (<150)
== END ==
LOC: M SFHCPLAZ 08:48
PROVIDERS: ATTEND Family Medicine
DX: E66.9 Obesity, unspecified (principal); Z79.899 Other long term (current) drug therapy

== ENCOUNTER → 2017-05-30 | Outpatient (REF) | payer MEDICARE, MEDICAID | LOC: M SFHCPLAZ 17:20 | DX: L08.9 Local infection of the skin and subcutaneous tissue, unspecified (principal) | CPT/HCPCS: 87186; 87205 ==

== ENCOUNTER → 2017-06-23 | Outpatient (REF) | payer MEDICARE, MEDICAID | LOC: M SFHCPLAZ 09:31 | DX: E53.8 Deficiency of other specified B group vitamins (principal); R73.01 Impaired fasting glucose; E03.9 Hypothyroidism, unspecified; K76.0 Fatty (change of) liver, not elsewhere classified; E78.5 Hyperlipidemia, unspecified; Z53.8 Procedure and treatment not carried out for other reasons ==

== ENCOUNTER → 2017-07-02 | Outpatient (REF) | payer MEDICARE, MEDICAID ==
[2017-07-02 11:51] LABS: BASO # 0.1 10^3/uL (0.0-0.2); BASO % 0.6 % (0.0-1.0); EOS # 0.2 10^3/uL (0.0-0.50); EOS % 2.1 % (0.0-3.0); HEMATOCRIT 44.2 % (42.0-52.0); IMMATURE GRANULOCYTE % 0.7 % (0-3.0); LYMPH # 2.6 10^3/uL (1.5-4.5); LYMPH % 31.3 % (24.0-44.0); MEAN CORPUSCULAR HEMOGLOBIN 30.2 pg (27.0-33.0); MEAN CORPUSCULAR HGB CONC 33.9 g/dl (32.0-36.5); MEAN CORPUSCULAR VOLUME 89.1 fl (80.0-96.0); MONO # 0.8 10^3/uL (0.0-0.8); MONO % 9.2 % (0.0-5.0); NEUTROPHILS # 4.7 10^3/uL (1.8-7.7); NEUTROPHILS % 56.1 % (36.0-66.0); PLATELET COUNT, AUTOMATED 266 10^3/uL (150-450); RED BLOOD COUNT 4.96 10^6/uL (4.30-6.10); RED CELL DISTRIBUTION WIDTH 13.2 % (11.5-14.5); WHITE BLOOD COUNT 8.4 10^3/uL (4.0-10.0)
[2017-07-02 12:01] LABS: PTH INTACT 44.1 PG/ML (18.5-88.0); TOTAL 25(OH) VITAMIN D 19.6 NG/ML (30.0-100.0)
[2017-07-02 12:12] LABS: HEPATITIS B SURFACE ANTIGEN NEGATIVE (NEGATIVE)
[2017-07-02 12:34] LABS: ALBUMIN 4.2 GM/DL (3.2-5.2); ALBUMIN/GLOBULIN RATIO 1.24 (1.00-1.93); ALKALINE PHOSPHATASE 107 U/L (45-117); ALT/SGPT 69 U/L (12-78); ANION GAP 9 MEQ/L (8-16); AST/SGOT 41 U/L (7-37); BILIRUBIN,TOTAL 0.4 MG/DL (0.2-1.0); BLOOD UREA NITROGEN 19 MG/DL (7-18); CALCIUM LEVEL 9.3 MG/DL (8.5-10.1); CARBON DIOXIDE LEVEL 26 MEQ/L (21-32); CHLORIDE LEVEL 108 MEQ/L (98-107); CHOLESTEROL LEVEL 142 MG/DL (<200); CHOLESTEROL RISK RATIO 6.173 (<5); CREATININE FOR GFR 0.91 MG/DL (0.70-1.30); GLOMERULAR FILTRATION RATE > 60.0 (>60); GLUCOSE, FASTING 91 MG/DL (70-100); HDL CHOLESTEROL 23 MG/DL (>40); NON-HDL-C 119 MG/DL; POTASSIUM SERUM 4.5 MEQ/L (3.5-5.1); SODIUM LEVEL 143 MEQ/L (136-145); TOTAL PROTEIN 7.6 GM/DL (6.4-8.2); TRIGLYCERIDES LEVEL 395 MG/DL (<150)
[2017-07-04 00:06] LABS: INSULIN LEVEL 130.8 uIU/mL (2.6-24.9)
== END ==
LOC: M SFHCPLAZ 08:22
DX: E53.8 Deficiency of other specified B group vitamins (principal); R73.01 Impaired fasting glucose; E03.9 Hypothyroidism, unspecified; K76.0 Fatty (change of) liver, not elsewhere classified
CPT/HCPCS: 83525

== ENCOUNTER → 2017-11-14 | Outpatient (REF) | payer MEDICARE, MEDICAID ==
[2017-11-14 09:36] LABS: APPEARANCE, URINE CLEAR (CLEAR); BACTERIA, URINE AUTO NEGATIVE (NEGATIVE); BILIRUBIN, URINE AUTO NEGATIVE (NEGATIVE); BLOOD, URINE BLOOD NEGATIVE (NEGATIVE); COLOR, URINE YELLOW (YELLOW); GLUCOSE, URINE (UA) AUTO NEGATIVE (NEGATIVE); KETONE, URINE AUTO NEGATIVE (NEGATIVE); LEUKOCYTE ESTERASE, URINE AUTO NEGATIVE (NEGATIVE); MUCUS, URINE SMALL (NEGATIVE); NITRITE, URINE AUTO NEGATIVE (NEGATIVE); PROTEIN, URINE AUTO NEGATIVE (NEGATIVE); RBC, URINE AUTO 1 /HPF (0-3); SPECIFIC GRAVITY URINE AUTO 1.029 (1.002-1.035); SQUAMOUS EPITHELIAL CELL UR AU 0 /HPF (0-6); UROBILINOGEN, URINE AUTO 0.2 mg/dL (0.0-2.0); WBC, URINE AUTO 0 /HPF (0-3)
[2017-11-14 10:34] LABS: ALBUMIN 4.2 GM/DL (3.2-5.2); ALBUMIN/GLOBULIN RATIO 1.31 (1.00-1.93); ALKALINE PHOSPHATASE 122 U/L (45-117); ALT/SGPT 72 U/L (12-78); ANION GAP 8 MEQ/L (8-16); AST/SGOT 39 U/L (7-37); BILIRUBIN,TOTAL 0.3 MG/DL (0.2-1.0); BLOOD UREA NITROGEN 20 MG/DL (7-18); C REACTIVE PROTEIN QUANTITATIV 0.37 MG/DL (0.00-0.30); CALCIUM LEVEL 8.8 MG/DL (8.5-10.1); CARBON DIOXIDE LEVEL 25 MEQ/L (21-32); CHLORIDE LEVEL 110 MEQ/L (98-107); CHOLESTEROL LEVEL 107 MG/DL (<200); CHOLESTEROL RISK RATIO 4.652 (<5); CPK CREATINE PHOSPHOKINASE 295 U/L (39-308); CREATININE FOR GFR 0.84 MG/DL (0.70-1.30); FREE T4 0.88 NG/DL (0.76-1.46); GLOMERULAR FILTRATION RATE > 60.0 (>60); GLUCOSE, FASTING 84 MG/DL (70-100); HDL CHOLESTEROL 23 MG/DL (>40); LDL CHOLESTEROL 24.8 MG/DL (<100); NON-HDL-C 84 MG/DL; POTASSIUM SERUM 4.6 MEQ/L (3.5-5.1); SODIUM LEVEL 143 MEQ/L (136-145); TOTAL PROTEIN 7.4 GM/DL (6.4-8.2); TRIGLYCERIDES LEVEL 296 MG/DL (<150)
[2017-11-14 10:37] LABS: MALB URINE SIEMENS 18.2 MG/L; MAU/CREAT RATIO 7.2 MCG/MG (0.0-30.0)
[2017-11-14 10:49] LABS: ESTIMATED AVERAGE GLUCOSE 105 MG/DL (60-110); HEMOGLOBIN A1c 5.3 %
[2017-11-14 11:05] LABS: VITAMIN B12 LEVEL 342 PG/ML (247-911)
== END ==
LOC: M SFHCPLAZ 08:34
DX: E78.5 Hyperlipidemia, unspecified (principal); E03.9 Hypothyroidism, unspecified; R73.01 Impaired fasting glucose; E53.8 Deficiency of other specified B group vitamins
CPT/HCPCS: 82550

== ENCOUNTER → 2018-03-27 | Outpatient (REF) | payer MEDICARE, MEDICAID ==
[2018-03-27 10:29] LABS: BASO % 0.4 % (0.0-1.0); EOS # 0.2 10^3/uL (0.0-0.50); EOS % 2.1 % (0.0-3.0); HEMATOCRIT 43.2 % (42.0-52.0); HEMOGLOBIN 14.7 g/dl (13.5-17.5); IMMATURE GRANULOCYTE % 0.6 % (0-3.0); LYMPH # 2.5 10^3/uL (1.5-4.5); LYMPH % 25.6 % (24.0-44.0); MEAN CORPUSCULAR HEMOGLOBIN 30.4 pg (27.0-33.0); MEAN CORPUSCULAR VOLUME 89.3 fl (80.0-96.0); MONO # 0.8 10^3/uL (0.0-0.8); MONO % 7.8 % (0.0-5.0); NEUTROPHILS # 6.1 10^3/uL (1.8-7.7); NEUTROPHILS % 63.5 % (36.0-66.0); PLATELET COUNT, AUTOMATED 270 10^3/uL (150-450); RED BLOOD COUNT 4.84 10^6/uL (4.30-6.10); RED CELL DISTRIBUTION WIDTH 13.2 % (11.5-14.5); RETICULOCYTE # 71.6 10^9/L (17-77); RETICULOCYTE % 1.5 % (0.5-1.5); WHITE BLOOD COUNT 9.6 10^3/uL (4.0-10.0)
[2018-03-27 10:41] LABS: ESTIMATED AVERAGE GLUCOSE 111 MG/DL (60-110); HEMOGLOBIN A1c 5.5 %
[2018-03-27 10:45] LABS: AMMONIA 48 uMOL/L (<32)
[2018-03-27 10:46] LABS: INR 0.89; PROTHROMBIN TIME 12.2 SECONDS (12.1-14.4)
[2018-03-27 10:47] LABS: PARTIAL THROMBOPLASTIN TIME 29.7 SECONDS (25.4-37.6)
[2018-03-27 10:54] LABS: CHOLESTEROL LEVEL 122 MG/DL (<200); CPK CREATINE PHOSPHOKINASE 465 U/L (39-308); FREE T4 0.96 NG/DL (0.76-1.46); HDL CHOLESTEROL 20 MG/DL (>40); NON-HDL-C 102 MG/DL; TRIGLYCERIDES LEVEL 476 MG/DL (<150)
[2018-03-27 10:56] LABS: VITAMIN B12 LEVEL 624 PG/ML (247-911)
== END ==
LOC: M SFHCPLAZ 08:36
DX: K76.0 Fatty (change of) liver, not elsewhere classified (principal); E53.8 Deficiency of other specified B group vitamins; E78.5 Hyperlipidemia, unspecified; E03.9 Hypothyroidism, unspecified; R73.01 Impaired fasting glucose
CPT/HCPCS: 82140

== ENCOUNTER → 2018-04-10 | Outpatient (REF) | payer MEDICARE, MEDICAID ==
[2018-04-10 10:52] LABS: ALBUMIN 4.3 GM/DL (3.2-5.2); ALT/SGPT 81 U/L (12-78); BILIRUBIN,TOTAL 0.3 MG/DL (0.2-1.0); BLOOD UREA NITROGEN 17 MG/DL (7-18); CALCIUM LEVEL 9.8 MG/DL (8.5-10.1); CARBON DIOXIDE LEVEL 29 MEQ/L (21-32); CHLORIDE LEVEL 107 MEQ/L (98-107); CPK CREATINE PHOSPHOKINASE 446 U/L (39-308); CREATININE FOR GFR 0.89 MG/DL (0.70-1.30); GLOMERULAR FILTRATION RATE > 60.0 (>60); GLUCOSE, FASTING 88 MG/DL (70-100); POTASSIUM SERUM 4.5 MEQ/L (3.5-5.1); SODIUM LEVEL 142 MEQ/L (136-145); TOTAL PROTEIN 7.7 GM/DL (6.4-8.2)
[2018-04-12 00:06] LABS: ANA (HEP2) Negative (.); ANTI JO-1 ANTIBODIES <0.2 AI (0.0-0.9)
== END ==
LOC: M SFHCPLAZ 09:29
PROVIDERS: ATTEND Family Medicine
DX: M62.82 Rhabdomyolysis (principal); Z23 Encounter for immunization
CPT/HCPCS: 36415; 80053; 82550; 83516; 83520; 86038; 86235; 90686; G0008; G0463

== ENCOUNTER → 2018-04-30 | Outpatient (CLI) | payer MEDICARE, MEDICAID ==
--- NOTE | 2018-05-13 07:50 | SLEEPHOME ---
DATE OF PROCEDURE: 04/30/2018 ORDERED BY: Dr. Elias Diagnostic home sleep testing was performed due to concern for the obstructive sleep apnea syndrome. For testing, a nocturnal T3 respiratory monitoring device was used. Continuous record was made of pulse, oxygen saturation, airflow, chest and abdominal strain, and body position. 9 hours and 59 minutes of data were reviewed. There were 8 hours and 44 minutes marked as time in bed. During the interval marked time in bed, there were 315 respiratory events identified of 10 seconds in duration or greater for a respiratory event index of 36. The events were both mixed and obstructive, 60 central and mixed apneas were scored. The patient's baseline pulse rate was 68 beats per minute. Pulse rate ranged from 58 to 105. Baseline saturation was 91%. Lowest oxygen saturation 79%. Testing was performed in both the supine and nonsupine positions. IMPRESSION: Abnormal home sleep testing with repetitive respiratory events and oxygen desaturations to 79% with a respiratory event index of 36.1 is consistent with obstructive sleep apnea syndrome. RECOMMENDATION: The patient should be encouraged to undergo formal sleep evaluation and in-laboratory pressure titration.
== END ==
LOC: M SLEEP HO 10:09
PROVIDERS: ATTEND Family Medicine
DX: G47.33 Obstructive sleep apnea (adult) (pediatric) (principal)

== ENCOUNTER → 2018-06-25 | Outpatient (CLI) | payer MEDICARE, MEDICAID ==
--- NOTE | 2018-06-30 19:47 | SLEEPCENT ---
DATE OF PROCEDURE: 06/25/2018 ORDERED BY: Daly Jean Nocturnal polysomnography was performed for the titration of pressure therapy in this patient with a clinical diagnosis of obstructive sleep apnea syndrome confirmed by home testing, revealing a respiratory event index was 36.1. For testing, the patient was fit with a ResMed Quattro full face mask of medium size, 5 cm of water pressure was applied to the circuit and the lights were extinguished. 7 hours and 43 minutes of data were reviewed. There were 329 minutes of sleep identified. Sleep latency was quite prolonged at 112 minutes. Rapid eye movement (REM) latency was normal at 82 minutes. Sleep architecture was fair. There were two REM cycles noted. Overall sleep efficiency was 71.8%. The patient's electrocardiogram showed a sinus rhythm with an average heart rate of 75 beats per minute. Rate ranged 55-85. EEG showed normal waveforms for awake and sleep. Respiratory events were reasonably palliated with continuous positive airway pressure (CPAP) at a pressure of +11. There was little activity noted in the limb leads and remaining measures of sleep physiology were normal. IMPRESSION: Obstructive sleep apnea syndrome (G47.33). RECOMMENDATIONS: Nightly use of pressure therapy 11 cm of water.
== END ==
LOC: M SLEEP 19:25
PROVIDERS: ATTEND Nurse Practitioner Family
DX: G47.33 Obstructive sleep apnea (adult) (pediatric) (principal)

== ENCOUNTER → 2018-09-04 | Outpatient (REF) | payer MEDICARE, MEDICAID ==
[~2018-09-04] MED LIST changes: +VITA100018 PO; -VITA100072 PO
[2018-09-04 14:27] LABS: ALBUMIN 4.3 GM/DL (3.2-5.2); ALT/SGPT 55 U/L (12-78); BILIRUBIN,TOTAL 0.6 MG/DL (0.2-1.0); BLOOD UREA NITROGEN 17 MG/DL (7-18); CALCIUM LEVEL 9.2 MG/DL (8.5-10.1); CARBON DIOXIDE LEVEL 29 MEQ/L (21-32); CHLORIDE LEVEL 105 MEQ/L (98-107); CHOLESTEROL LEVEL 135 MG/DL (<200); CPK CREATINE PHOSPHOKINASE 513 U/L (39-308); CREATININE FOR GFR 0.95 MG/DL (0.70-1.30); GLOMERULAR FILTRATION RATE > 60.0 (>60); GLUCOSE, FASTING 80 MG/DL (70-100); HDL CHOLESTEROL 27 MG/DL (>40); LDL CHOLESTEROL 55 MG/DL (<100); NON-HDL-C 108 MG/DL; POTASSIUM SERUM 4.4 MEQ/L (3.5-5.1); SODIUM LEVEL 140 MEQ/L (136-145); TOTAL PROTEIN 7.4 GM/DL (6.4-8.2); TRIGLYCERIDES LEVEL 266 MG/DL (<150)
[2018-09-04 15:02] LABS: HEMOGLOBIN A1c 5.5 %
[2018-09-08 08:06] LABS: INSULIN LEVEL 26.6 uIU/mL (2.6-24.9)
== END ==
LOC: M SFHCPLAZ 11:23
PROVIDERS: ATTEND Family Medicine
DX: E78.5 Hyperlipidemia, unspecified (principal); R73.01 Impaired fasting glucose; K76.0 Fatty (change of) liver, not elsewhere classified
CPT/HCPCS: 36415; 80053; 80061; 82172; 82550; 83010; 83036; 83525; 83883; G0463

== ENCOUNTER → 2018-12-29 | Outpatient (REF) | payer MEDICARE, MEDICAID ==
[2018-12-29 11:53] LABS: BASO # 0.1 10^3/uL (0.0-0.2); BASO % 0.6 % (0.0-1.0); EOS # 0.2 10^3/uL (0.0-0.50); EOS % 2.3 % (0.0-3.0); HEMATOCRIT 45.2 % (42.0-52.0); HEMOGLOBIN 15.1 g/dl (13.5-17.5); LYMPH # 2.5 10^3/uL (1.5-4.5); LYMPH % 26.6 % (24.0-44.0); MEAN CORPUSCULAR HEMOGLOBIN 30.4 pg (27.0-33.0); MEAN CORPUSCULAR HGB CONC 33.4 g/dl (32.0-36.5); MEAN CORPUSCULAR VOLUME 90.9 fl (80.0-96.0); MONO # 0.8 10^3/uL (0.0-0.8); MONO % 8.2 % (0.0-5.0); NEUTROPHILS # 5.8 10^3/uL (1.8-7.7); NEUTROPHILS % 61.8 % (36.0-66.0); PLATELET COUNT, AUTOMATED 273 10^3/uL (150-450); RED BLOOD COUNT 4.97 10^6/uL (4.30-6.10); WHITE BLOOD COUNT 9.4 10^3/uL (4.0-10.0)
[2018-12-29 12:04] LABS: ALBUMIN 4.3 GM/DL (3.2-5.2); ALT/SGPT 47 U/L (12-78); BILIRUBIN,TOTAL 0.6 MG/DL (0.2-1.0); BLOOD UREA NITROGEN 18 MG/DL (7-18); CALCIUM LEVEL 9.6 MG/DL (8.5-10.1); CARBON DIOXIDE LEVEL 30 MEQ/L (21-32); CHLORIDE LEVEL 105 MEQ/L (98-107); CHOLESTEROL LEVEL 134 MG/DL (<200); CHOLESTEROL RISK RATIO 5.153 (<5); CPK CREATINE PHOSPHOKINASE 436 U/L (39-308); CREATININE FOR GFR 0.92 MG/DL (0.70-1.30); FREE T4 0.86 NG/DL (0.76-1.46); GLOMERULAR FILTRATION RATE > 60.0 (>60); GLUCOSE, FASTING 85 MG/DL (70-100); HDL CHOLESTEROL 26 MG/DL (>40); LDL CHOLESTEROL 35 MG/DL (<100); NON-HDL-C 108 MG/DL; POTASSIUM SERUM 4.4 MEQ/L (3.5-5.1); SODIUM LEVEL 139 MEQ/L (136-145); TOTAL PROTEIN 7.6 GM/DL (6.4-8.2); TRIGLYCERIDES LEVEL 363 MG/DL (<150)
[2018-12-29 12:07] LABS: VITAMIN B12 LEVEL 564 PG/ML (247-911)
== END ==
LOC: M SFHCPLAZ 09:14
PROVIDERS: ATTEND Family Medicine
DX: I10 Essential (primary) hypertension (principal); E78.5 Hyperlipidemia, unspecified; E03.9 Hypothyroidism, unspecified; E53.8 Deficiency of other specified B group vitamins
CPT/HCPCS: 36415; 80053; 80061; 82550; 82607; 84439; 84443; 85025; G0463

== ENCOUNTER → 2019-06-24 | Outpatient (REF) | payer MEDICARE, MEDICAID ==
[2019-06-24 11:40] LABS: APPEARANCE, URINE HAZY (CLEAR); BACTERIA, URINE AUTO NEGATIVE (NEGATIVE); BILIRUBIN, URINE AUTO NEGATIVE (NEGATIVE); BLOOD, URINE BLOOD NEGATIVE (NEGATIVE); COLOR, URINE YELLOW (YELLOW); GLUCOSE, URINE (UA) AUTO NEGATIVE (NEGATIVE); KETONE, URINE AUTO NEGATIVE (NEGATIVE); LEUKOCYTE ESTERASE, URINE AUTO NEGATIVE (NEGATIVE); MUCUS, URINE LARGE (NEGATIVE); NITRITE, URINE AUTO NEGATIVE (NEGATIVE); PROTEIN, URINE AUTO NEGATIVE (NEGATIVE); RBC, URINE AUTO 2 /HPF (0-3); SPECIFIC GRAVITY URINE AUTO 1.028 (1.002-1.035); SQUAMOUS EPITHELIAL CELL UR AU 0 /HPF (0-6); UROBILINOGEN, URINE AUTO 0.2 mg/dL (0.0-2.0); WBC, URINE AUTO 1 /HPF (0-3)
[2019-06-24 12:18] LABS: C REACTIVE PROTEIN QUANTITATIV < 0.30 MG/DL (0.00-0.30); CHOLESTEROL LEVEL 132 MG/DL (<200); CPK CREATINE PHOSPHOKINASE 474 U/L (39-308); FREE T4 1.07 NG/DL (0.76-1.46); HDL CHOLESTEROL 24 MG/DL (>40); NON-HDL-C 108 MG/DL; TRIGLYCERIDES LEVEL 437 MG/DL (<150)
[2019-06-24 12:32] LABS: MALB URINE SIEMENS 47.9 MG/L; MAU/CREAT RATIO 12.5 MCG/MG (0.0-30.0)
[2019-06-24 12:34] LABS: HEMOGLOBIN A1c 5.7 %
== END ==
LOC: M SFHCPLAZ 08:34
PROVIDERS: ATTEND Family Medicine
DX: E78.5 Hyperlipidemia, unspecified (principal); E03.9 Hypothyroidism, unspecified; R73.01 Impaired fasting glucose

== ENCOUNTER → 2019-07-22 | Outpatient (CLI) | payer MEDICARE, MEDICAID ==
--- NOTE | 2019-07-22 08:02 | REP ---
Abdominal Right Upper Quadrant Ultrasound: The study performed for nonalcoholic hepato steatosis. Comparison is 05/20/2017. There is no cholelithiasis, gallbladder wall thickening or pericholecystic fluid. There is no intrahepatic or extrahepatic biliary duct dilatation. The common biliary duct measures 6.4 mm in diameter. The hepatic parenchyma is very dense compatible with hepato steatosis. No hepatic masses are identified, however, the study is somewhat insensitive because of the extreme density of the hepatic parenchyma . The visualized hepatic parenchyma is unremarkable. Portions of the pancreas are obscured by bowel gas. The right kidney measures the 11 point see x 6.8 x 5.7 cm and is normal size. There is no right renal calculus or hydronephrosis. There is no solid or cystic right renal mass. There is no abdominal right upper quadrant free fluid. Impression: Very dense hepatic parenchyma compatible with hepato steatosis. No definite hepatic masses are identified. No right upper quadrant free fluid. Portions of the pancreas are obscured by bowel gas. Electronically Signed by Sonny Carreno MD 07/22/2019 07:53 A
== END ==
LOC: M RAD 06:58
PROVIDERS: ATTEND Family Medicine
DX: K76.0 Fatty (change of) liver, not elsewhere classified (principal)

== ENCOUNTER 2019-08-28 08:39 | Observation (INO) | payer MEDICARE, MEDICAID ==
[2019-08-28] VITALS (7 sets, daily range): BP systolic 118–139; BP diastolic 73–87; O2SAT 93–95
[~2019-08-28] VITALS: Ht 190.5 cm; Wt 124.6 kg
[2019-08-28] MEDS ORDERED: METF-791 PO (08:57)
[2019-08-28] MEDS ORDERED: OZEM2INJ2 SC (08:57)
[2019-08-28] MEDS ORDERED: FLUO40CA PO (08:57)
[2019-08-28] MEDS ORDERED: LEVO50TA5 PO (08:57)
[2019-08-28] MEDS ORDERED: NS 1,000 ML IV ONE (09:00)
[2019-08-28 09:41] LABS: BASO % 0.4 % (0.0-1.0); EOS # 0.1 10^3/uL (0.0-0.5); HEMATOCRIT 42.3 % (42.0-52.0); HEMOGLOBIN 14.2 g/dl (13.5-17.5); LYMPH % 29.2 % (24.0-44.0); MEAN CORPUSCULAR HEMOGLOBIN 29.8 pg (27.0-33.0); MEAN CORPUSCULAR HGB CONC 33.6 g/dl (32.0-36.5); MEAN CORPUSCULAR VOLUME 88.7 fl (80.0-96.0); MONO # 0.7 10^3/uL (0.0-0.8); MONO % 10.2 % (0.0-5.0); NEUTROPHILS # 4.1 10^3/uL (1.5-8.5); NEUTROPHILS % 58.6 % (36.0-66.0); PLATELET COUNT, AUTOMATED 244 10^3/uL (150-450); RED BLOOD COUNT 4.77 10^6/uL (4.30-6.10)
[2019-08-28 09:59] LABS: AMPHETAMINES LEVEL URINE NEGATIVE (NEGATIVE); BARBITURATES URINE NEGATIVE (NEGATIVE); BENZODIAZEPINES URINE NEGATIVE (NEGATIVE); CANNABINOIDS URINE NEGATIVE (NEGATIVE); COCAINE METABOLITE URINE NEGATIVE (NEGATIVE); METHADONE URINE NEGATIVE (NEGATIVE); OPIATES URINE NEGATIVE (NEGATIVE); PHENCYCLIDINE URINE NEGATIVE (NEGATIVE)
[2019-08-28 10:10] LABS: ALT/SGPT 72 U/L (12-78); BILIRUBIN,TOTAL 0.4 MG/DL (0.2-1.0); BLOOD UREA NITROGEN 20 MG/DL (7-18); CALCIUM LEVEL 8.9 MG/DL (8.5-10.1); CARBON DIOXIDE LEVEL 24 MEQ/L (21-32); CHLORIDE LEVEL 108 MEQ/L (98-107); CPK CREATINE PHOSPHOKINASE 350 U/L (39-308); GLOMERULAR FILTRATION RATE > 60.0 (>60); GLUCOSE, FASTING 115 MG/DL (70-100); POTASSIUM SERUM 3.9 MEQ/L (3.5-5.1); SODIUM LEVEL 140 MEQ/L (136-145)
[2019-08-28 10:11] LABS: ACETAMINOPHEN LEVEL < 2.0 UG/ML (10.0-30.0); ALBUMIN 4.3 GM/DL (3.2-5.2); BILIRUBIN,DIRECT 0.1 MG/DL (0.0-0.2); ETHYL ALCOHOL (ETHANOL) < 0.003 % (0.000-0.010); TOTAL PROTEIN 7.5 GM/DL (6.4-8.2)
[2019-08-28] MEDS ORDERED: VITAD1000T PO (10:53)
[2019-08-28] MEDS ORDERED: VITMTA PO (10:53)
[2019-08-28] MEDS ORDERED: IBUP200T45 PO (10:53)
--- NOTE | 2019-08-28 11:44 | ECGEPIP ---
[facility] - ED Test Date: 2019-08-28 Pat Name: NILA REINOSO Department: Room: - Gender: Male [employer] Accounts Sales: : 1980 Requested By: Rubio Partida Order Number: [id number] Reading MD: Rubio Partida Measurements Intervals Turner Rate: 114 P: 61 PA: 162 QRS: 15 QRSD: 106 T: 5 QT: 333 QTc: 459 Interpretive Statements SINUS TACHYCARDIA NONSPECIFIC T-WAVE ABNORMALITY ABNORMAL RHYTHM ECG IVCD DELAYED R WAVE PROGRESSION NO PRIOR ECG FOR COMPARISON Electronically Signed on 08-28-2019 11:43:44 EDT by Ruibo Partida
[2019-08-28] MEDS ORDERED: IBUPROFEN 600 MG TAB PO PRN (13:30)
[2019-08-28] MEDS ORDERED: ACETAMINOPHEN TAB 650MG DOSE (2X325MG) PO PRN (13:30)
--- NOTE | 2019-08-28 14:08 | HPEPDOC ---
General Date of Admission Aug 28, 2019 at 08:40 Date of Service: Aug 28, 2019 Attending Physician: Tremayne Elias M.D. Chief Complaint The patient is a 39-year-old male admitted with a reason for visit of Accidental Overdose. Source: Patient Exam Limitations: Mild cognitive slowing Timing/Duration: Other (today) Severity: Other (, not applicable) Associated Symptoms: Other (lethargy) History of Present Illness This is a 39 years old white male with past medical history of psoriasis, mild cognitive impairment, hyperlipidemia, hypothyroid, obesity, borderline diabetes mellitus, was in usual state of health at this morning, accidentally. He took his mother's Seroquel 300 mg by mouth 3 tablets. Patient experienced excessive sleepiness and lethargy was brought to ER where he is being admitted for observation. On my examination and interview. Patient is awake now after 6 hours of lethargy. He is answering his phone calls. He is to come this my lethargy, but no other complaints. No chest pain, no shortness of breath, no nausea, vomiting, diarrhea Home Medications Scheduled Cholecalciferol (Vitamin D3) (Vitamin D3) 1,000 Unit Tablet, 2,000 UNITS PO DAILY, (Reported) Cyanocobalamin (Vitamin B-12) (Vitamin B-12) 1,000 Mcg Tab, 1,000 MCG PO DAILY, (Reported) Fluoxetine Hcl (Fluoxetine HCl) 40 Mg Capsule, 40 MG PO DAILY, (Reported) Levothyroxine Sodium (Levothyroxine Sodium) 50 Mcg Tablet, 50 MCG PO QAM, (Reported) Metformin HCl (Metformin HCl ER) 500 Mg Tab.er.24h, 2,000 MG PO DAILY, (Reported) Multivitamins (Thera M Plus Tablet) 1 Each Tablet, 1 TAB PO DAILY, (Reported) Semaglutide (Ozempic) 1 Mg/0.75 Ml Pen.injctr, 1 MG SC QWEEK, (Reported) FRIDAYS Scheduled PRN Ibuprofen (Ibu-200) 200 Mg Tablet, 600 MG PO Q6H PRN for PAIN, (Reported) Allergies Coded Allergies: No Known Allergies (Unverified , 08/28/19) Past Medical History Medical History Psoriasis. Mild cognitive impairment, hyperlipidemia, hypothyroidism, obesity, pre-diabetes mellitus Surgical History Vasectomy, pilonidal cyst removal and dental extraction Family History Positive family history of CAD, hypothyroidism, hyperlipidemia and melanoma Social History * Smoker: Denies Alcohol: occationally Drugs: denies A-FIB/CHADSVASC A-FIB History Current/History of A-Fib/PAF?: No Review of Systems Constitutional: Reports: Lethargy Eyes: Denies: Pain, Vision change, Conjunctivae inflammation, Eyelid inflammation, Redness, Other ENT: Denies: Head Aches, Ear Pain, Dysphagia, Sinus Congestion, Post Nasal Drip, Sore Throat, Epistaxis, Other Symptoms Skin: Denies: Rash, Lesions, Jaundice, Bruising, Itching, Dry, Breakdown, Nail Changes, Other Pulmonary: Denies: Dyspnea, Cough, Pleuritic Chest Pain, Other Symptoms Cardiovascular: Denies: Chest Pain, Palpitations, Orthopnea, Paroxysmal Noc. Dyspnea, Edema, Lt Headedness, Other Symptoms Gastrointestinal: Denies: Nausea, Vomiting, Abdominal Pain, Diarrhea, Constipation, Melena, Hematochezia, Other Symptoms Genitourinary: Denies: Dysuria, Frequency, Incontinence, Hematuria, Retention, Other Symptoms Hematologic: Denies: Bruising, Bleeding Excessively, Petecchia, Purpura, Enl arged Lymph Nodes, Other Hematologic Endocrine: Denies: Polydipsia, Polyphagia, Polyuria, Heat Intolerance, Cold Intolerance, Other Endocrine Sx Musculoskeletal: Denies: Neck Pain, Back Pain, Shoulder Pain, Arm Pain, Hand Pain, Leg Pain, Foot Pain, Joint Pain, Muscle Pain, Spasms, Other Symptoms Neurological: Denies: Weakness, Numbness, Incoordination, Change in speech, Confusion, Seizures, Other Symptoms Psych: Denies: Mood Normal, Anxiety, Depression, Memory Issues, Thoughts of Self Harm, Anger, Thoughts of Harming Other, Other Psych Physical Examination General Exam: Positive: Alert, Cooperative Eye Exam: Positive: PERRLA, Conjunctiva & lids normal ENT Exam: Positive: Atraumatic, Mucous membr. moist/pink Neck Exam: Positive: Supple Chest Exam: Positive: Clear to auscultation, Normal air movement Heart Exam: Positive: Rate Normal, Normal S1, Normal S2 Abdomen Exam: Positive: Normal bowel sounds, Soft Extremity Exam: Positive: Normal pulses Skin Exam: Positive: Nl turgor and temperature Neuro Exam: Positive: Strength at 5/5 X4 ext, Cranial Nerves 3-12 NL Psych Exam: Positive: Mood NL, Oriented x 3 Vital Signs Vital Signs Date Time Temp Pulse Resp B/P (MAP) Pulse Ox O2 Delivery O2 Flow Rate FiO2 08/28/19 13:30 83 18 95 Nasal Cannula 2.0 08/28/19 13:15 129/65 (86) 08/28/19 08:39 97.6 Laboratory Data Labs 24H Laboratory Tests 2 08/28/19 09:25: Immature Granulocyte % (Auto) 0.6, Neutrophils (%) (Auto) 58.6, Lymphocytes (%) (Auto) 29.2, Monocytes (%) (Auto) 10.2H, Eosinophils (%) (Auto) 1.0, Basophils (%) (Auto) 0.4, Neutrophils # (Auto) 4.1, Lymphocytes # (Auto) 2.0, Monocytes # (Auto) 0.7, Eosinophils # (Auto) 0.1, Basophils # (Auto) 0.0, Nucleated Red Blood Cells % (auto) 0.0, Anion Gap 8, Glomerular Filtration Rate > 60.0, Calcium Level 8.9, Total Bilirubin 0.4, Direct Bilirubin 0.1, Aspartate Amino Tr ansf (AST/SGOT) 36, Alanine Aminotransferase (ALT/SGPT) 72, Alkaline Phosphatase 97, Total Creatine Kinase 350H, Total Protein 7.5, Albumin 4.3, Albumin/Globulin Ratio 1.34, Thyroid Stimulating Hormone (TSH) 3.040, Salicylates Level 2.0L, Urine Opiates Screen NEGATIVE, Urine Methadone Screen NEGATIVE, Acetaminophen Level < 2.0L, Urine Barbiturates Screen NEGATIVE, Urine Phencyclidine Screen NEGATIVE, Urine Amphetamines Screen NEGATIVE, Urine Benzodiazepines Screen NEGATIVE, Urine Cocaine Metabolite Screen NEGATIVE, Urine Cannabinoids Screen NEGATIVE, Ethyl Alcohol Level < 0.003 08/28/19 09:52: Lactic Acid Level 1.8 CBC/BMP Laboratory Tests 08/28/19 09:25 Problems (1) Accidental overdose Status: Acute Problem Text: 39 years old white male with accidental intake of Seroquel 300 m g, 3 tablets this morning, patient fell lethargic when he was brought to ER, but he is awake, alert, and it usually status at the present time. EKG shows sinus tachycardia, no acute ST-T changes, QTC of 459 CBC, CMP, lactic acid rhythm and urine tox within normal limits Admit to PCU with telemetry for observation Cardiac monitoring Continuous pulse ox IV of normal saline 100 mL per hour Continue all home meds CBC, CMP in a.m. Out of bed as tolerated Diet is a carbonic consistent DVT prophylaxis with Lovenox Possible discharge in a.m. (2) Mild cognitive impairment Status: Chronic Problem Text: History of mild cognitive impairment. No complications. At present time (3) Hypothyroid Status: Chronic Problem Text: Continue home meds (4) Hyperlipemia Status: Chronic Problem Text: Continue home meds (5) Borderline type 2 diabetes mellitus Status: Chronic Problem Text: Fingerstick blood sugar acute [employer] event with coverage Hold Glucophage secondary to increased BUN and history of ANGE in the past May restart on discharge (6) Obesity (BMI 30-39.9) Status: Chronic Problem Text: Diet and exercise counseling done Plan / VTE VTE Prophylaxis Ordered?: Yes DONALD MEJIA MD Aug 28, 2019 14:08
[2019-08-28] MEDS ORDERED: GLUCOSE 4 GM CHEW TABLET PO PRN (14:15)
[2019-08-28] MEDS ORDERED: GLUCAGON FOR INJ 1 MG VIAL (J1610) SC PRN (14:15)
[2019-08-28] MEDS ORDERED: DEXTROSE 50% 50 ML SYRINGE IV PRN (14:15)
[2019-08-28] MEDS: NS 1,000 ML IV SCH (14:23)
[2019-08-28] MEDS: HumaLOG INSULIN (NovoLOG) PER UNIT SC SCH (17:07)
[2019-08-28] MEDS ORDERED: HumaLOG INSULIN (NovoLOG) PER UNIT SC SCH (21:00)
[2019-08-28] MEDS ORDERED: ENOXAPARIN 40MG/0.4ML SYRINGE (J1650 PER 10MG) SC SCH (21:00)
[2019-08-29] VITALS (8 sets, daily range): BP systolic 114–128; BP diastolic 66–81; O2SAT 91–95
[2019-08-29] MEDS: NS 1,000 ML IV SCH ×2 (00:04→09:38)
[2019-08-29 05:14] LABS: HEMATOCRIT 39.1 % (42.0-52.0); HEMOGLOBIN 13.3 g/dl (13.5-17.5); MEAN CORPUSCULAR HEMOGLOBIN 30.9 pg (27.0-33.0); MEAN CORPUSCULAR VOLUME 90.7 fl (80.0-96.0); PLATELET COUNT, AUTOMATED 232 10^3/uL (150-450); RED BLOOD COUNT 4.31 10^6/uL (4.30-6.10); WHITE BLOOD COUNT 7.5 10^3/uL (4.0-10.0)
[2019-08-29 05:42] LABS: ALBUMIN 3.5 GM/DL (3.2-5.2); ALT/SGPT 71 U/L (12-78); BILIRUBIN,TOTAL 0.5 MG/DL (0.2-1.0); BLOOD UREA NITROGEN 16 MG/DL (7-18); CALCIUM LEVEL 8.6 MG/DL (8.5-10.1); CARBON DIOXIDE LEVEL 26 MEQ/L (21-32); CHLORIDE LEVEL 112 MEQ/L (98-107); CREATININE FOR GFR 0.99 MG/DL (0.70-1.30); GLOMERULAR FILTRATION RATE > 60.0 (>60); GLUCOSE, FASTING 87 MG/DL (70-100); POTASSIUM SERUM 4.4 MEQ/L (3.5-5.1); SODIUM LEVEL 143 MEQ/L (136-145); TOTAL PROTEIN 6.3 GM/DL (6.4-8.2)
[2019-08-29] MEDS ORDERED: LEVOTHYROXINE 50MCG TABLET (0.05MG) PO SCH (06:00)
[2019-08-29] MEDS: HumaLOG INSULIN (NovoLOG) PER UNIT SC SCH (07:25)
[2019-08-29] MEDS ORDERED: VITAMIN D 1,000 INTERNATIONAL UNITS TABLET PO SCH (09:00)
[2019-08-29] MEDS ORDERED: MULTIVITAMINS/MINERALS THERAP 1 TAB PO SCH (09:00)
[2019-08-29] MEDS ORDERED: FLUoxetine 20 MG CAP PO SCH (09:00)
[2019-08-29] MEDS ORDERED: CYANOCOBALAMIN 500 MCG TAB PO SCH (09:00)
--- NOTE | 2019-08-29 09:57 | DS.PDOC ---
Discharge Summary General Date of Admission Aug 28, 2019 at 08:40 Date of Discharge 08/29/19 Discharge Summary PROCEDURES PERFORMED DURING STAY: None. ADMITTING DIAGNOSES: 1. Accidental drug overdose. DISCHARGE DIAGNOSES: 1. Accidental drug overdose, mild cognitive impairment, hyperlipidemia, hypothyroid, obesity, borderline diabetes mellitus. COMPLICATIONS/CHIEF COMPLAINT: Accidental Overdose. HISTORY OF PRESENT ILLNESS: This is a 39 years old white male with past medical history of psoriasis, mild cognitive impairment, hyperlipidemia, hypothyroid, obesity, borderline diabetes mellitus, was in usual state of health at this morning, accidentally. He took his mother's Seroquel 300 mg by mouth 3 tablets. Patient experienced excessive sleepiness and lethargy was brought to ER where he is being admitted for observation. On my examination and interview. Patient is awake now after 6 hours of lethargy. He is answering his phone calls. He is to come this my lethargy, but no other complaints. No chest pain, no shortness of breath, no nausea, vomiting, diarrhea. HOSPITAL COURSE: Patient was admitted for observation purposes only as recommended by poison control. Patient remained stable, asymptomatic. No limits on telemetry was noted and this morning he is awake, alert, oriented and wishes to go home and he will be discharged home on all his home medications. Medication safety counseling was done at bedside and he understands very well. DISCHARGE MEDICATIONS: Please see below. ALLERGIES: Please see below. PHYSICAL EXAMINATION ON DISCHARGE: VITAL SIGNS: Please see below. GENERAL: Within normal limits HEENT: PERRLA. Extraocular muscles intact NECK: Supple CARDIOVASCULAR EXAMINATION: S1, S2, regular RESPIRATORY EXAMINATION: Clear to A&P ABDOMINAL EXAMINATION: Benign EXTREMITIES: No clubbing, cyanosis, edema SKIN: Normal NEUROLOGICAL EXAMINATION: . No focal motor sensory deficit PSYCHIATRIC EXAMINATION: Normal LABORATORY DATA: Please see below. IMAGING: None PROGNOSIS: Good ACTIVITY: As tolerated. DIET: Consistent carbohydrate DISCHARGE PLAN: Follow with Dr. Elias as an outpatient DISPOSITION: . Home DISCHARGE INSTRUCTIONS: 1. As per discharge instructions. ITEMS TO FOLLOWUP ON ON OUTPATIENT: 1. With Dr. Elias outpatient in 1-2 weeks. DISCHARGE CONDITION: Stable. TIME SPENT ON DISCHARGE: 25 minutes. Vital Signs/I&Os Vital Signs Date Time Temp Pulse Resp B/P (MAP) Pulse Ox O2 Delivery O2 Flow Rate FiO2 08/29/19 08:00 97.0 76 16 114/66 (82) 95 Room Air 08/28/19 16:00 2.0 I&O- Last 24 Hours up to 6 AM 08/29/19 06:00 Intake Total 1430 ml Output Total 0 ml Balance 1430 ml Laboratory Data Labs 24H Laboratory Tests 2 08/28/19 17:04: Bedside Glucose (Misc Panel) 76 08/28/19 20:10: Bedside Glucose (Misc Panel) 87 08/29/19 05:02: Nucleated Red Blood Cells % (auto) 0.0, Anion Gap 5L, Glomerular Filtration Rate > 60.0, Calcium Level 8.6, Total Bilirubin 0.5, Aspartate Amino Transf (AST/SGOT) 44H, Alanine Aminotransferase (ALT/SGPT) 71, Alkaline Phosphatase 75, Total Protein 6.3L, Albumin 3.5, Albumin/Globulin Ratio 1.25 CBC/BMP Laboratory Tests 08/29/19 05:02 FSBS Laboratory Tests Test 08/28/19 17:04 08/28/19 20:10 Range/Units Bedside Glucose (Misc Panel) 76 87 70-105 MG/DL Discharge Medications Scheduled Cholecalciferol (Vitamin D3) (Vitamin D3) 1,000 Unit Tablet, 2,000 UNITS PO DAILY, (Reported) Cyanocobalamin (Vitamin B-12) (Vitamin B-12) 1,000 Mcg Tab, 1,000 MCG PO DAILY, (Reported) Fluoxetine Hcl (Fluoxetine HCl) 40 Mg Capsule, 40 MG PO DAILY, (Reported) Levothyroxine Sodium (Levothyroxine Sodium) 50 Mcg Tablet, 50 MCG PO QAM, (Reported) Metformin HCl (Metformin HCl ER) 500 Mg Tab.er.24h, 2,000 MG PO DAILY, (Reported) Multivitamins (Thera M Plus Tablet) 1 Each Tablet, 1 TAB PO DAILY, (Reported) Semaglutide (Ozempic) 1 Mg/0.75 Ml Pen.injctr, 1 MG SC QWEEK, (Reported) FRIDAYS Scheduled PRN Ibuprofen (Ibu-200) 200 Mg Tablet, 600 MG PO Q6H PRN for PAIN, (Reported) Allergies Coded Allergies: No Known Allergies (Unverified , 08/28/19) DONALD MEJIA MD Aug 29, 2019 09:57
== END 2019-08-29 11:37 | disposition home or self-care (01) ==
LOC: M ED 08:39 → M ED INP 08:40 → ENRESERVDT 14:00 → ENRESERVTM 14:00 → M PCU 14:37
PROVIDERS: ADMIT Internal Medicine; ATTEND Internal Medicine
DX: R53.83 Other fatigue (principal); T43.591A Poisoning by other antipsychotics and neuroleptics, accidental (unintentional), initial encounter; Y92.098 Other place in other non-institutional residence as the place of occurrence of the external cause; G31.84 Mild cognitive impairment of uncertain or unknown etiology; E78.5 Hyperlipidemia, unspecified; E03.9 Hypothyroidism, unspecified; E66.9 Obesity, unspecified; Z68.30 Body mass index [BMI] 30.0-30.9, adult; E11.9 Type 2 diabetes mellitus without complications; L40.9 Psoriasis, unspecified; Z79.899 Other long term (current) drug therapy; Z79.84 Long term (current) use of oral hypoglycemic drugs
CPT/HCPCS: 36415; 80048; 80053; 80076; 80307; 82550; 83605; 84443; 85025; 85027; 93005; 93041; 94760; 96360; 96372; 99285; G0378; G0480; J1650

== ENCOUNTER → 2019-08-31 | Outpatient (REF) | payer MEDICARE, MEDICAID ==
[~2019-08-31] MED LIST changes: +FLUO40CA PO; +IBUP200T45 PO; +LEVO50TA5 PO; +METF-791 PO; +OZEM2INJ2 SC; +VITAD1000T PO; +VITMTA PO
== END ==
LOC: M SFHCPLAZ 11:40
PROVIDERS: ATTEND Family Medicine
DX: D22.71 Melanocytic nevi of right lower limb, including hip (principal)
CPT/HCPCS: 11104; 88305; G0463

== ENCOUNTER → 2019-09-27 | Outpatient (REF) | payer MEDICARE, MEDICAID ==
[~2019-09-27] MED LIST changes: -METF-791 PO; +METF-838 PO
== END ==
LOC: M SFHCPLAZ 16:58
PROVIDERS: ATTEND Family Medicine
DX: D23.71 Other benign neoplasm of skin of right lower limb, including hip (principal)

== ENCOUNTER → 2019-11-29 | Outpatient (CLI) | payer MEDICARE, MEDICAID ==
[~2019-11-29] MED LIST changes: +D31000TA2 PO; -VITAD1000T PO
[2019-11-29 12:49] LABS: HEMOGLOBIN A1c 5.4 %
[2019-11-29 12:57] LABS: ALBUMIN 4.4 GM/DL (3.2-5.2); ALT/SGPT 74 U/L (12-78); BILIRUBIN,TOTAL 0.6 MG/DL (0.2-1.0); BLOOD UREA NITROGEN 16 MG/DL (7-18); CALCIUM LEVEL 9.5 MG/DL (8.5-10.1); CARBON DIOXIDE LEVEL 28 MEQ/L (21-32); CHLORIDE LEVEL 104 MEQ/L (98-107); CHOLESTEROL LEVEL 126 MG/DL (<200); CHOLESTEROL RISK RATIO 4.846 (<5); CPK CREATINE PHOSPHOKINASE 371 U/L (39-308); CREATININE FOR GFR 1.07 MG/DL (0.70-1.30); GLOMERULAR FILTRATION RATE > 60.0 (>60); GLUCOSE, FASTING 78 MG/DL (70-100); HDL CHOLESTEROL 26 MG/DL (>40); LDL CHOLESTEROL 51 MG/DL (<100); NON-HDL-C 100 MG/DL; POTASSIUM SERUM 4.6 MEQ/L (3.5-5.1); SODIUM LEVEL 139 MEQ/L (136-145); TOTAL PROTEIN 7.7 GM/DL (6.4-8.2); TRIGLYCERIDES LEVEL 245 MG/DL (<150)
== END ==
LOC: M PLALAB 10:39
PROVIDERS: ATTEND Family Medicine
DX: R73.01 Impaired fasting glucose (principal); E78.5 Hyperlipidemia, unspecified
CPT/HCPCS: 36415; 80053; 80061; 82550; 83036; 83525; G0463

== ENCOUNTER → 2020-05-18 | Outpatient (REF) | payer MEDICARE, MEDICAID ==
[2020-05-18 10:40] LABS: BASO # 0.1 10^3/uL (0.0-0.2); BASO % 0.7 % (0.0-1.0); EOS # 0.3 10^3/uL (0.0-0.5); EOS % 2.6 % (0.0-3.0); HEMATOCRIT 45.4 % (42.0-52.0); HEMOGLOBIN 14.6 g/dl (13.5-17.5); LYMPH # 3.2 10^3/uL (1.5-5.0); LYMPH % 33.3 % (24.0-44.0); MEAN CORPUSCULAR HEMOGLOBIN 29.6 pg (27.0-33.0); MEAN CORPUSCULAR HGB CONC 32.2 g/dl (32.0-36.5); MEAN CORPUSCULAR VOLUME 92.1 fl (80.0-96.0); MONO # 0.9 10^3/uL (0.0-0.8); MONO % 9.3 % (0.0-5.0); NEUTROPHILS # 5.2 10^3/uL (1.5-8.5); NEUTROPHILS % 53.5 % (36.0-66.0); PLATELET COUNT, AUTOMATED 289 10^3/uL (150-450); RED BLOOD COUNT 4.93 10^6/uL (4.30-6.10); WHITE BLOOD COUNT 9.7 10^3/uL (4.0-10.0)
[2020-05-18 11:18] LABS: HEMOGLOBIN A1c 5.2 %
[2020-05-18 11:27] LABS: ALBUMIN 4.5 GM/DL (3.2-5.2); ALT/SGPT 77 U/L (12-78); BILIRUBIN,TOTAL 0.4 MG/DL (0.2-1.0); BLOOD UREA NITROGEN 23 MG/DL (7-18); CALCIUM LEVEL 9.3 MG/DL (8.5-10.1); CARBON DIOXIDE LEVEL 28 MEQ/L (21-32); CHLORIDE LEVEL 109 MEQ/L (98-107); CHOLESTEROL LEVEL 130 MG/DL (<200); CHOLESTEROL RISK RATIO 4.333 (<5); CPK CREATINE PHOSPHOKINASE 417 U/L (39-308); CREATININE FOR GFR 0.88 MG/DL (0.70-1.30); FERRITIN 193 NG/ML (26-388); FREE T4 0.93 NG/DL (0.76-1.46); GLOMERULAR FILTRATION RATE > 60.0 (>60); GLUCOSE, FASTING 90 MG/DL (70-100); HDL CHOLESTEROL 30 MG/DL (>40); LDL CHOLESTEROL 49 MG/DL (<100); NON-HDL-C 100 MG/DL; POTASSIUM SERUM 4.4 MEQ/L (3.5-5.1); SODIUM LEVEL 141 MEQ/L (136-145); TOTAL PROTEIN 7.3 GM/DL (6.4-8.2); TRIGLYCERIDES LEVEL 256 MG/DL (<150)
[2020-05-18 11:39] LABS: TOTAL 25(OH) VITAMIN D 47.6 NG/ML (30.0-100.0)
[2020-05-18 11:40] LABS: PTH INTACT 41.6 PG/ML (18.5-88.0); VITAMIN B12 LEVEL 485 PG/ML (247-911)
== END ==
LOC: M SFHCPLAZ 08:06
PROVIDERS: ATTEND Family Medicine
DX: E53.8 Deficiency of other specified B group vitamins (principal); R73.01 Impaired fasting glucose; E03.9 Hypothyroidism, unspecified; E55.9 Vitamin D deficiency, unspecified; E78.5 Hyperlipidemia, unspecified; Z79.899 Other long term (current) drug therapy

== ENCOUNTER → 2020-10-17 | Outpatient (REF) | payer MEDICARE, MEDICAID ==
[2020-10-17 15:18] LABS: ALBUMIN 4.2 GM/DL (3.2-5.2); ALT/SGPT 58 U/L (12-78); BILIRUBIN,TOTAL 0.4 MG/DL (0.2-1.0); BLOOD UREA NITROGEN 18 MG/DL (7-18); CALCIUM LEVEL 9.5 MG/DL (8.5-10.1); CARBON DIOXIDE LEVEL 27 MEQ/L (21-32); CHLORIDE LEVEL 106 MEQ/L (98-107); CPK CREATINE PHOSPHOKINASE 441 U/L (39-308); FREE T4 0.97 NG/DL (0.76-1.46); GLOMERULAR FILTRATION RATE > 60.0 (>60); GLUCOSE, FASTING 79 MG/DL (70-100); NT-PRO BNP 11 PG/ML (<125); POTASSIUM SERUM 4.5 MEQ/L (3.5-5.1); SODIUM LEVEL 141 MEQ/L (136-145); THYROID PEROXIDASE ANTIBODY 28.9 U/ML (<60.0); TOTAL PROTEIN 7.5 GM/DL (6.4-8.2)
[2020-10-17 15:30] LABS: MAU/CREAT RATIO 6.7 MCG/MG (0.0-30.0)
[2020-10-17 15:58] LABS: HEMOGLOBIN A1c 5.4 %
== END ==
LOC: M SFHCPLAZ 09:47
PROVIDERS: ATTEND Family Medicine
DX: R73.01 Impaired fasting glucose (principal); E78.5 Hyperlipidemia, unspecified; K76.0 Fatty (change of) liver, not elsewhere classified; E03.9 Hypothyroidism, unspecified
CPT/HCPCS: 36415; 80053; 82043; 82105; 82550; 83036; 83525; 83880; 84439; 84443; 86376; G0463

== ENCOUNTER → 2021-02-15 | Outpatient (CLI) | payer MEDICARE, MEDICAID ==
[2021-02-15 11:58] LABS: HEMOGLOBIN A1c 5.3 %
[2021-02-15 13:09] LABS: ALBUMIN 4.1 GM/DL (3.2-5.2); ALT/SGPT 65 U/L (12-78); BILIRUBIN,TOTAL 0.7 MG/DL (0.2-1.0); BLOOD UREA NITROGEN 16 MG/DL (7-18); CALCIUM LEVEL 9.4 MG/DL (8.5-10.1); CARBON DIOXIDE LEVEL 26 MEQ/L (21-32); CHLORIDE LEVEL 105 MEQ/L (98-107); CPK CREATINE PHOSPHOKINASE 383 U/L (39-308); CREATININE FOR GFR 0.88 MG/DL (0.70-1.30); FREE T4 0.95 NG/DL (0.76-1.46); GLOMERULAR FILTRATION RATE > 60.0 (>60); GLUCOSE, FASTING 79 MG/DL (70-100); POTASSIUM SERUM 4.2 MEQ/L (3.5-5.1); SODIUM LEVEL 140 MEQ/L (136-145); TOTAL PROTEIN 7.3 GM/DL (6.4-8.2)
== END ==
LOC: M PLALAB 08:56
PROVIDERS: ATTEND Family Medicine
DX: E03.9 Hypothyroidism, unspecified (principal); R73.01 Impaired fasting glucose; M62.82 Rhabdomyolysis

== ENCOUNTER → 2021-03-05 | Outpatient (CLI) | payer MEDICARE, MEDICAID ==
[~2021-03-05] MED LIST changes: -IBUP200T45 PO; +IBUP200T46 PO
--- NOTE | 2021-03-05 10:02 | REP ---
INDICATION: NAFLD. COMPARISON: 07/22/2019. TECHNIQUE: Real-time sonographic evaluation of right upper quadrant performed. FINDINGS: The gallbladder demonstrates no evidence of intraluminal sludge or calculi, wall thickening or pericholecystic fluid. There is no intrahepatic or extrahepatic biliary dilatation, common bile duct measures 5 mm in maximum diameter. There is diffuse heterogeneous increased echotexture of the liver compatible with diffuse fibrofatty infiltration. No gross liver mass is seen. The visualized pancreas is grossly unremarkable, not optimally seen due to overlying bowel gas. The right kidney demonstrates no hydronephrosis, with a normal size of 14.2 cm in length. No free fluid is seen. IMPRESSION: Diffuse fibrofatty infiltration of the liver. <Electronically signed by Sonny Willams > 03/05/21 [id number]
== END ==
LOC: M RAD 07:05
PROVIDERS: ATTEND Family Medicine
DX: K76.0 Fatty (change of) liver, not elsewhere classified (principal)

== ENCOUNTER → 2021-06-20 | Outpatient (CLI) | payer MEDICARE, MEDICAID ==
[2021-06-20 11:14] LABS: ALBUMIN 4.2 GM/DL (3.2-5.2); ALT/SGPT 55 U/L (12-78); BILIRUBIN,TOTAL 0.6 MG/DL (0.2-1.0); BLOOD UREA NITROGEN 17 MG/DL (7-18); CALCIUM LEVEL 9.5 MG/DL (8.5-10.1); CARBON DIOXIDE LEVEL 27 MEQ/L (21-32); CHLORIDE LEVEL 108 MEQ/L (98-107); CHOLESTEROL LEVEL 113 MG/DL (<200); CHOLESTEROL RISK RATIO 4.708 (<5); CREATININE FOR GFR 0.93 MG/DL (0.70-1.30); FERRITIN 149 NG/ML (26-388); FREE T4 0.97 NG/DL (0.76-1.46); GLOMERULAR FILTRATION RATE > 60.0 (>60); GLUCOSE, FASTING 79 MG/DL (70-100); HDL CHOLESTEROL 24 MG/DL (>40); LDL CHOLESTEROL 32 MG/DL (<100); NON-HDL-C 89 MG/DL; POTASSIUM SERUM 4.1 MEQ/L (3.5-5.1); SODIUM LEVEL 142 MEQ/L (136-145); TOTAL PROTEIN 7.3 GM/DL (6.4-8.2); TRIGLYCERIDES LEVEL 286 MG/DL (<150)
[2021-06-20 11:16] LABS: THYROID PEROXIDASE ANTIBODY 30.2 U/ML (<60.0)
[2021-06-20 11:17] LABS: VITAMIN B12 LEVEL 292 PG/ML (247-911)
[2021-06-20 12:45] LABS: HEMOGLOBIN A1c 5.5 %
[2021-06-23 01:09] LABS: INSULIN LEVEL 50.2 uIU/mL (2.6-24.9)
== END ==
LOC: M PLALAB 08:03
PROVIDERS: ATTEND Family Medicine
DX: E53.8 Deficiency of other specified B group vitamins (principal); R73.01 Impaired fasting glucose; K76.0 Fatty (change of) liver, not elsewhere classified

== ENCOUNTER → 2021-07-16 | Outpatient (CLI) | payer MEDICARE, MEDICAID ==
[~2021-07-16] MED LIST changes: -D31000TA2 PO; +VITA100093 PO
== END ==
LOC: M RAD 08:17
PROVIDERS: ATTEND Family Medicine
DX: K76.0 Fatty (change of) liver, not elsewhere classified (principal)

== ENCOUNTER → 2021-11-22 | Outpatient (CLI) | payer MEDICARE, MEDICAID ==
[2021-11-22 13:41] LABS: BASO # 0.1 10^3/uL (0.0-0.2); BASO % 0.6 % (0.0-1.0); EOS # 0.2 10^3/uL (0.0-0.5); EOS % 2.7 % (0.0-3.0); HEMATOCRIT 41.8 % (42.0-52.0); HEMOGLOBIN 14.1 g/dl (13.5-17.5); LYMPH # 2.6 10^3/uL (1.5-5.0); LYMPH % 30.7 % (24.0-44.0); MEAN CORPUSCULAR HEMOGLOBIN 29.9 pg (27.0-33.0); MEAN CORPUSCULAR HGB CONC 33.7 g/dl (32.0-36.5); MEAN CORPUSCULAR VOLUME 88.6 fl (80.0-96.0); MONO # 0.7 10^3/uL (0.0-0.8); MONO % 7.7 % (2.0-8.0); PLATELET COUNT, AUTOMATED 259 10^3/uL (150-450); RED BLOOD COUNT 4.72 10^6/uL (4.30-6.10); WHITE BLOOD COUNT 8.6 10^3/uL (4.0-10.0)
[2021-11-22 13:42] LABS: HEMATOCRIT 42.8 % (42.0-52.0)
[2021-11-22 14:20] LABS: HEMOGLOBIN A1c 5.4 %
[2021-11-22 14:48] LABS: ALBUMIN 4.3 GM/DL (3.2-5.2); ALT/SGPT 66 U/L (12-78); BILIRUBIN,TOTAL 0.7 MG/DL (0.2-1.0); BLOOD UREA NITROGEN 18 MG/DL (7-18); CALCIUM LEVEL 9.7 MG/DL (8.5-10.1); CARBON DIOXIDE LEVEL 25 MEQ/L (21-32); CHLORIDE LEVEL 108 MEQ/L (98-107); CREATININE FOR GFR 0.96 MG/DL (0.70-1.30); FERRITIN 173 NG/ML (26-388); FREE T4 0.96 NG/DL (0.76-1.46); GLOMERULAR FILTRATION RATE > 60.0 (>60); GLUCOSE, FASTING 79 MG/DL (70-100); POTASSIUM SERUM 4.2 MEQ/L (3.5-5.1); SODIUM LEVEL 142 MEQ/L (136-145); TOTAL PROTEIN 7.5 GM/DL (6.4-8.2); VITAMIN B12 LEVEL 484 PG/ML (247-911)
[2021-11-23 08:09] LABS: APOLIPOPROTEIN B/A-1 RATIO 0.7 ratio (0.0-0.7); INSULIN LEVEL 33.2 uIU/mL (2.6-24.9)
== END ==
LOC: M PLALAB 12:06
PROVIDERS: ATTEND Family Medicine
DX: E53.8 Deficiency of other specified B group vitamins (principal); R73.01 Impaired fasting glucose; E03.9 Hypothyroidism, unspecified; E78.5 Hyperlipidemia, unspecified

== ENCOUNTER → 2022-04-15 | Outpatient (CLI) | payer MEDICARE, MEDICAID ==
[2022-04-15 11:26] LABS: ALBUMIN 4.3 G/DL (3.2-5.2); ALKALINE PHOSPHATASE 88 U/L (46-116); ALT/SGPT 53 U/L (7.0-40); AST/SGOT 33 U/L (<34); BILIRUBIN,TOTAL 0.6 MG/DL (0.3-1.2); BLOOD UREA NITROGEN 19 MG/DL (9-23); CALCIUM LEVEL 9.4 MG/DL (8.5-10.1); CARBON DIOXIDE LEVEL 28 MMOL/L (20-31); CHLORIDE LEVEL 105 MMOL/L (98-107); CHOLESTEROL LEVEL 100 MG/DL (<200); CREATININE FOR GFR 0.82 MG/DL (0.70-1.30); GLOMERULAR FILTRATION RATE > 60.0 (>60); GLUCOSE, FASTING 81 MG/DL (60-100); HDL CHOLESTEROL 26.3 MG/DL (>40); INR 0.91; LDL CHOLESTEROL 30.7 MG/DL (<100); NON-HDL-C 74 MG/DL; POTASSIUM SERUM 4.2 MMOL/L (3.5-5.1); PROTHROMBIN TIME 12.5 SECONDS (12.5-14.5); PTH INTACT 27.8 PG/ML (18.5-88.0); SODIUM LEVEL 141 MMOL/L (136-145); TOTAL PROTEIN 7.2 G/DL (5.7-8.2); TRIGLYCERIDES LEVEL 215 MG/DL (<150)
[2022-04-15 11:27] LABS: PARTIAL THROMBOPLASTIN TIME 29.9 SECONDS (24.8-34.2)
[2022-04-15 11:28] LABS: TOTAL 25(OH) VITAMIN D 59.8 NG/ML (20.0-100.0)
[2022-04-15 11:51] LABS: CREATININE, URINE 239.6 MG/DL; MAU/CREAT RATIO 4.1 MCG/MG (0.0-30.0)
[2022-04-15 11:57] LABS: HEMOGLOBIN A1c 5.2 % (4.0-6.0)
[2022-04-16 07:08] LABS: APOLIPOPROTEIN B/A-1 RATIO 0.7 ratio (0.0-0.7)
== END ==
LOC: M PLALAB 09:14
PROVIDERS: ATTEND Family Medicine
DX: E55.9 Vitamin D deficiency, unspecified (principal); E78.5 Hyperlipidemia, unspecified; R73.01 Impaired fasting glucose; K76.0 Fatty (change of) liver, not elsewhere classified

== ENCOUNTER → 2022-08-05 | Outpatient (CLI) | payer MEDICARE, MEDICAID ==
[2022-08-05 10:39] LABS: BASO # 0.1 10^3/uL (0.0-0.2); BASO % 0.4 % (0.0-1.0); EOS # 0.2 10^3/uL (0.0-0.5); EOS % 1.2 % (0.0-3.0); HEMATOCRIT 46.7 % (42.0-52.0); HEMOGLOBIN 15.2 g/dl (13.5-17.5); LYMPH # 2.4 10^3/uL (1.5-5.0); LYMPH % 13.5 % (24.0-44.0); MEAN CORPUSCULAR HEMOGLOBIN 29.6 pg (27.0-33.0); MEAN CORPUSCULAR HGB CONC 32.5 g/dl (32.0-36.5); MONO # 1.3 10^3/uL (0.0-0.8); MONO % 7.4 % (2.0-8.0); NEUTROPHILS # 13.6 10^3/uL (1.5-8.5); PLATELET COUNT, AUTOMATED 280 10^3/uL (150-450); RED BLOOD COUNT 5.13 10^6/uL (4.30-6.10); WHITE BLOOD COUNT 17.6 10^3/uL (4.0-10.0)
[2022-08-05 10:48] LABS: ALBUMIN 4.3 G/DL (3.2-5.2); ALKALINE PHOSPHATASE 99 U/L (46-116); ALT/SGPT 61 U/L (7.0-40); AST/SGOT 37 U/L (<34); BILIRUBIN,TOTAL 0.7 MG/DL (0.3-1.2); BLOOD UREA NITROGEN 18 MG/DL (9-23); CALCIUM LEVEL 9.7 MG/DL (8.5-10.1); CARBON DIOXIDE LEVEL 29 MMOL/L (20-31); CHLORIDE LEVEL 106 MMOL/L (98-107); CREATININE FOR GFR 0.95 MG/DL (0.70-1.30); FERRITIN 102.4 NG/ML (10.5-307.3); FREE T4 0.99 NG/DL (0.89-1.76); GLOMERULAR FILTRATION RATE > 60.0 (>60); GLUCOSE, FASTING 86 MG/DL (60-100); POTASSIUM SERUM 4.6 MMOL/L (3.5-5.1); SODIUM LEVEL 141 MMOL/L (136-145); THYROID STIMULATING HORMONE 2.466 uIU/ML (0.55-4.78); TOTAL PROTEIN 7.1 G/DL (5.7-8.2)
[2022-08-05 11:04] LABS: HEMOGLOBIN A1c 5.3 % (4.0-6.0)
== END ==
LOC: M PLALAB 08:14
PROVIDERS: ATTEND Family Medicine
DX: R73.01 Impaired fasting glucose (principal); E53.8 Deficiency of other specified B group vitamins; E03.9 Hypothyroidism, unspecified; I10 Essential (primary) hypertension

== ENCOUNTER → 2022-08-13 | Outpatient (CLI) | payer MEDICARE, MEDICAID ==
[2022-08-13 15:19] LABS: BASO # 0.1 10^3/uL (0.0-0.2); BASO % 0.5 % (0.0-1.0); EOS # 0.2 10^3/uL (0.0-0.5); EOS % 1.9 % (0.0-3.0); HEMATOCRIT 44.9 % (42.0-52.0); HEMOGLOBIN 14.6 g/dl (13.5-17.5); LYMPH # 2.7 10^3/uL (1.5-5.0); MEAN CORPUSCULAR HEMOGLOBIN 29.7 pg (27.0-33.0); MEAN CORPUSCULAR HGB CONC 32.5 g/dl (32.0-36.5); MEAN CORPUSCULAR VOLUME 91.3 fl (80.0-96.0); MONO # 0.8 10^3/uL (0.0-0.8); MONO % 7.8 % (2.0-8.0); NEUTROPHILS # 6.3 10^3/uL (1.5-8.5); NEUTROPHILS % 62.3 % (36.0-66.0); PLATELET COUNT, AUTOMATED 296 10^3/uL (150-450); RED BLOOD COUNT 4.92 10^6/uL (4.30-6.10); WHITE BLOOD COUNT 10.2 10^3/uL (4.0-10.0)
[2022-08-13 15:49] LABS: ALKALINE PHOSPHATASE 88 U/L (46-116); ALT/SGPT 52 U/L (7.0-40); AST/SGOT 32 U/L (<34); BILIRUBIN,TOTAL 0.4 MG/DL (0.3-1.2); BLOOD UREA NITROGEN 18 MG/DL (9-23); CALCIUM LEVEL 9.1 MG/DL (8.5-10.1); CARBON DIOXIDE LEVEL 28 MMOL/L (20-31); CHLORIDE LEVEL 107 MMOL/L (98-107); CREATININE FOR GFR 0.78 MG/DL (0.70-1.30); GLOMERULAR FILTRATION RATE > 60.0 (>60); GLUCOSE, FASTING 77 MG/DL (60-100); POTASSIUM SERUM 4.5 MMOL/L (3.5-5.1); SODIUM LEVEL 142 MMOL/L (136-145); TOTAL PROTEIN 6.8 G/DL (5.7-8.2)
[2022-08-13 15:52] LABS: CPK CREATINE PHOSPHOKINASE 302 U/L (46-171)
== END ==
LOC: M PLALAB 08:37
PROVIDERS: ATTEND Family Medicine
DX: M62.82 Rhabdomyolysis (principal)

== ENCOUNTER → 2022-09-01 | Outpatient (REF) | payer MEDICARE, MEDICAID | LOC: M LAB REF 13:02 | PROVIDERS: ATTEND Physician Assistant Medical | DX: L02.212 Cutaneous abscess of back [any part, except buttock and flank] (principal) ==

== ENCOUNTER → 2023-01-06 | Outpatient (REF) | payer MEDICARE, MEDICAID | LOC: M LAB REF 16:17 | PROVIDERS: ATTEND Physician Assistant Medical | DX: L02.212 Cutaneous abscess of back [any part, except buttock and flank] (principal) ==

== ENCOUNTER → 2023-01-15 | Outpatient (REF) | payer MEDICARE, MEDICAID ==
[2023-01-15 13:38] LABS: ALKALINE PHOSPHATASE 84 U/L (46-116); ALT/SGPT 50 U/L (7.0-40); AST/SGOT 30 U/L (<34); BASO # 0.1 10^3/uL (0.0-0.2); BASO % 0.8 % (0.0-1.0); BILIRUBIN,TOTAL 0.5 MG/DL (0.3-1.2); BLOOD UREA NITROGEN 15 MG/DL (9-23); CALCIUM LEVEL 9.2 MG/DL (8.5-10.1); CARBON DIOXIDE LEVEL 30 MMOL/L (20-31); CHLORIDE LEVEL 105 MMOL/L (98-107); CHOLESTEROL LEVEL 120 MG/DL (<200); CHOLESTEROL RISK RATIO 3.89 (<5); CREATININE FOR GFR 0.87 MG/DL (0.70-1.30); EOS # 0.2 10^3/uL (0.0-0.5); EOS % 2.4 % (0.0-3.0); FERRITIN 126.5 NG/ML (10.5-307.3); FREE T4 0.95 NG/DL (0.89-1.76); GLOMERULAR FILTRATION RATE > 60.0 (>60); GLUCOSE, FASTING 86 MG/DL (60-100); HDL CHOLESTEROL 30.8 MG/DL (>40); HEMATOCRIT 44.8 % (42.0-52.0); HEMOGLOBIN 14.8 g/dl (13.5-17.5); LDL CHOLESTEROL 47.2 MG/DL (<100); LYMPH # 2.5 10^3/uL (1.5-5.0); LYMPH % 27.4 % (24.0-44.0); MEAN CORPUSCULAR HEMOGLOBIN 30.1 pg (27.0-33.0); MEAN CORPUSCULAR VOLUME 91.2 fl (80.0-96.0); MONO # 0.7 10^3/uL (0.0-0.8); MONO % 7.9 % (2.0-8.0); NEUTROPHILS # 5.6 10^3/uL (1.5-8.5); NEUTROPHILS % 60.7 % (36.0-66.0); NON-HDL-C 89.2 MG/DL; PLATELET COUNT, AUTOMATED 303 10^3/uL (150-450); POTASSIUM SERUM 4.6 MMOL/L (3.5-5.1); RED BLOOD COUNT 4.91 10^6/uL (4.30-6.10); SODIUM LEVEL 140 MMOL/L (136-145); THYROID STIMULATING HORMONE 2.534 uIU/ML (0.55-4.78); TRIGLYCERIDES LEVEL 210 MG/DL (<150); WHITE BLOOD COUNT 9.2 10^3/uL (4.0-10.0)
== END ==
LOC: M SFHCADAM 08:20
PROVIDERS: ATTEND Family Medicine
DX: E03.9 Hypothyroidism, unspecified (principal); E78.5 Hyperlipidemia, unspecified; R73.01 Impaired fasting glucose

== ENCOUNTER → 2023-05-27 | Outpatient (REF) | payer MEDICARE, MEDICAID ==
[2023-05-27 13:34] LABS: BASO # 0.1 10^3/uL (0.0-0.2); BASO % 0.7 % (0.0-1.0); EOS # 0.2 10^3/uL (0.0-0.5); EOS % 2.6 % (0.0-3.0); HEMATOCRIT 45.4 % (42.0-52.0); HEMOGLOBIN 15.4 g/dl (13.5-17.5); LYMPH # 2.9 10^3/uL (1.5-5.0); LYMPH % 32.3 % (24.0-44.0); MEAN CORPUSCULAR HEMOGLOBIN 30.7 pg (27.0-33.0); MEAN CORPUSCULAR HGB CONC 33.9 g/dl (32.0-36.5); MEAN CORPUSCULAR VOLUME 90.4 fl (80.0-96.0); MONO # 0.7 10^3/uL (0.0-0.8); MONO % 7.6 % (2.0-8.0); NEUTROPHILS # 5.1 10^3/uL (1.5-8.5); NEUTROPHILS % 56.5 % (36.0-66.0); PLATELET COUNT, AUTOMATED 277 10^3/uL (150-450); RED BLOOD COUNT 5.02 10^6/uL (4.30-6.10)
[2023-05-27 13:49] LABS: CREATININE, URINE 243.9 MG/DL; MAU/CREAT RATIO 4.5 MCG/MG (0.0-30.0)
[2023-05-27 13:58] LABS: C REACTIVE PROTEIN QUANTITATIV < 0.40 MG/DL (<1.0)
[2023-05-27 13:59] LABS: ALBUMIN 4.1 G/DL (3.2-5.2); ALKALINE PHOSPHATASE 87 U/L (46-116); ALT/SGPT 50 U/L (7.0-40); AST/SGOT 30 U/L (<34); BILIRUBIN,TOTAL 0.5 MG/DL (0.3-1.2); BLOOD UREA NITROGEN 15 MG/DL (9-23); CALCIUM LEVEL 9.2 MG/DL (8.5-10.1); CARBON DIOXIDE LEVEL 30 MMOL/L (20-31); CHLORIDE LEVEL 107 MMOL/L (98-107); CPK CREATINE PHOSPHOKINASE 317 U/L (46-171); CREATININE FOR GFR 0.87 MG/DL (0.70-1.30); GLOMERULAR FILTRATION RATE > 60.0 (>60); GLUCOSE, FASTING 93 MG/DL (60-100); POTASSIUM SERUM 4.6 MMOL/L (3.5-5.1); PTH INTACT 43.1 PG/ML (18.5-88.0); SODIUM LEVEL 142 MMOL/L (136-145)
[2023-05-27 14:02] LABS: TOTAL 25(OH) VITAMIN D 65.3 NG/ML (20.0-100.0)
[2023-05-27 14:09] LABS: HEMOGLOBIN A1c 5.3 % (4.0-6.0)
== END ==
LOC: M SFHCADAM 08:03
PROVIDERS: ATTEND Family Medicine
DX: R73.01 Impaired fasting glucose (principal); E53.8 Deficiency of other specified B group vitamins; E78.5 Hyperlipidemia, unspecified; E55.9 Vitamin D deficiency, unspecified

== ENCOUNTER → 2023-06-03 | Outpatient (REF) | payer MEDICARE, MEDICAID | LOC: M SFHCPLAZ 11:35 | PROVIDERS: ATTEND Family Medicine | DX: R73.01 Impaired fasting glucose (principal); E03.9 Hypothyroidism, unspecified ==

== ENCOUNTER → 2023-09-30 | Outpatient (REF) | payer MEDICARE, MEDICAID ==
[2023-09-30 14:06] LABS: ALBUMIN 4.4 G/DL (3.2-5.2); ALKALINE PHOSPHATASE 99 U/L (46-116); ALT/SGPT 52 U/L (7.0-40); AST/SGOT 32 U/L (<34); BILIRUBIN,TOTAL 0.7 MG/DL (0.3-1.2); BLOOD UREA NITROGEN 22 MG/DL (9-23); CALCIUM LEVEL 9.7 MG/DL (8.5-10.1); CARBON DIOXIDE LEVEL 29 MMOL/L (20-31); CHLORIDE LEVEL 107 MMOL/L (98-107); CHOLESTEROL LEVEL 132 MG/DL (<200); CHOLESTEROL RISK RATIO 5.11 (<5); CREATININE FOR GFR 0.92 MG/DL (0.70-1.30); GLOMERULAR FILTRATION RATE > 60.0 (>60); GLUCOSE, FASTING 85 MG/DL (60-100); HDL CHOLESTEROL 25.8 MG/DL (>40); LDL CHOLESTEROL 46.4 MG/DL (<100); NON-HDL-C 106.2 MG/DL; POTASSIUM SERUM 4.3 MMOL/L (3.5-5.1); SODIUM LEVEL 140 MMOL/L (136-145); TOTAL PROTEIN 7.3 G/DL (5.7-8.2); TRIGLYCERIDES LEVEL 299 MG/DL (<150)
[2023-09-30 14:08] LABS: FREE T4 1.23 NG/DL (0.89-1.76); THYROID STIMULATING HORMONE 1.405 uIU/ML (0.55-4.78)
[2023-09-30 14:18] LABS: HEMOGLOBIN A1c 5.2 % (4.0-6.0)
== END ==
LOC: M SFHCPLAZ 08:44
PROVIDERS: ATTEND Family Medicine
DX: R73.01 Impaired fasting glucose (principal); E03.9 Hypothyroidism, unspecified

== ENCOUNTER → 2023-10-10 | Outpatient (REF) | payer MEDICARE, MEDICAID | LOC: M SFHCPLAZ 16:59 | PROVIDERS: ATTEND Family Medicine | DX: R73.01 Impaired fasting glucose (principal); E03.9 Hypothyroidism, unspecified; K76.0 Fatty (change of) liver, not elsewhere classified ==

== ENCOUNTER → 2023-11-18 | Outpatient (CLI) | payer MEDICARE, MEDICAID | LOC: M RAD 08:02 | PROVIDERS: ATTEND Family Medicine | DX: K76.0 Fatty (change of) liver, not elsewhere classified (principal) ==

== ENCOUNTER → 2023-11-24 | Outpatient (CLI) | payer MEDICARE, MEDICAID ==
[2023-11-24 18:29] LABS: BASO # 0.1 10^3/uL (0.0-0.2); BASO % 0.4 % (0.0-1.0); EOS # 0.2 10^3/uL (0.0-0.5); EOS % 1.3 % (0.0-3.0); HEMATOCRIT 38.7 % (42.0-52.0); HEMOGLOBIN 12.8 g/dl (13.5-17.5); LYMPH # 1.7 10^3/uL (1.5-5.0); LYMPH % 10.8 % (24.0-44.0); MEAN CORPUSCULAR HEMOGLOBIN 30.2 pg (27.0-33.0); MEAN CORPUSCULAR HGB CONC 33.1 g/dl (32.0-36.5); MEAN CORPUSCULAR VOLUME 91.3 fl (80.0-96.0); MONO # 1.6 10^3/uL (0.0-0.8); NEUTROPHILS % 75.4 % (36.0-66.0); PLATELET COUNT, AUTOMATED 362 10^3/uL (150-450); RED BLOOD COUNT 4.24 10^6/uL (4.30-6.10); WHITE BLOOD COUNT 15.8 10^3/uL (4.0-10.0)
== END ==
LOC: M PLALAB 14:33
PROVIDERS: ATTEND Physician Assistant Medical
DX: R50.9 Fever, unspecified (principal)

== ENCOUNTER → 2024-02-03 | Outpatient (REF) | payer MEDICARE, MEDICAID ==
[2024-02-03 13:16] LABS: ALBUMIN 4.1 G/DL (3.2-5.2); ALKALINE PHOSPHATASE 95 U/L (46-116); ALT/SGPT 44 U/L (7.0-40); AST/SGOT 31 U/L (<34); BILIRUBIN,TOTAL 0.6 MG/DL (0.3-1.2); BLOOD UREA NITROGEN 17 MG/DL (9-23); CALCIUM LEVEL 9.6 MG/DL (8.5-10.1); CARBON DIOXIDE LEVEL 28 MMOL/L (20-31); CHLORIDE LEVEL 109 MMOL/L (98-107); CREATININE FOR GFR 0.79 MG/DL (0.70-1.30); GLOMERULAR FILTRATION RATE > 60.0 (>60); GLUCOSE, FASTING 91 MG/DL (60-100); POTASSIUM SERUM 4.1 MMOL/L (3.5-5.1); SODIUM LEVEL 139 MMOL/L (136-145); TOTAL PROTEIN 7.2 G/DL (5.7-8.2)
[2024-02-03 13:20] LABS: FREE T4 1.17 NG/DL (0.89-1.76); THYROID STIMULATING HORMONE 1.697 uIU/ML (0.55-4.78)
[2024-02-03 13:27] LABS: HEMOGLOBIN A1c 5.1 % (4.0-6.0)
[2024-02-03 13:58] LABS: CREATININE, URINE 257.8 MG/DL; MAU/CREAT RATIO 1.5 MCG/MG (0.0-30.0)
== END ==
LOC: M SFHCPLAZ 08:06
PROVIDERS: ATTEND Family Medicine
DX: R73.01 Impaired fasting glucose (principal); E03.9 Hypothyroidism, unspecified; K76.0 Fatty (change of) liver, not elsewhere classified

== ENCOUNTER → 2024-06-07 | Outpatient (REF) | payer MEDICARE, MEDICAID ==
[2024-06-07 14:45] LABS: ALBUMIN 4.2 G/DL (3.2-5.2); ALKALINE PHOSPHATASE 92 U/L (40-129); ALT/SGPT 42 U/L (7.0-40); AST/SGOT 31 U/L (<34); BILIRUBIN,TOTAL 0.6 MG/DL (0.3-1.2); BLOOD UREA NITROGEN 17 MG/DL (9-23); CALCIUM LEVEL 9.4 MG/DL (8.5-10.1); CARBON DIOXIDE LEVEL 29 MMOL/L (20-31); CHLORIDE LEVEL 104 MMOL/L (98-107); CHOLESTEROL LEVEL 123 MG/DL (<200); CHOLESTEROL RISK RATIO 4.12 (<5); CREATININE FOR GFR 0.85 MG/DL (0.70-1.30); FREE T4 1.36 NG/DL (0.89-1.76); GLOMERULAR FILTRATION RATE > 60.0 (>60); GLUCOSE, FASTING 92 MG/DL (60-100); HDL CHOLESTEROL 29.8 MG/DL (>40); LDL CHOLESTEROL 52.6 MG/DL (<100); NON-HDL-C 93.2 MG/DL; POTASSIUM SERUM 4.5 MMOL/L (3.5-5.1); PTH INTACT 58.7 PG/ML (18.5-88.0); SODIUM LEVEL 143 MMOL/L (136-145); THYROID STIMULATING HORMONE 1.444 uIU/ML (0.55-4.78); TOTAL 25(OH) VITAMIN D 69.3 NG/ML (20.0-100.0); TOTAL PROTEIN 7.3 G/DL (5.7-8.2); TRIGLYCERIDES LEVEL 203 MG/DL (<150)
[2024-06-07 15:14] LABS: HEMOGLOBIN A1c 5.2 % (4.0-6.0)
[2024-06-07 15:36] LABS: CORTISOL AM 22.2 UG/DL (4.3-22.4)
== END ==
LOC: M SFHCPLAZ 08:24
PROVIDERS: ATTEND Family Medicine
DX: R73.01 Impaired fasting glucose (principal); E03.9 Hypothyroidism, unspecified; K76.0 Fatty (change of) liver, not elsewhere classified

== ENCOUNTER → 2024-06-07 | Outpatient (CLI) | payer MEDICARE, MEDICAID | LOC: M SLEEP 20:00 | PROVIDERS: ATTEND Internal Medicine Pulmonary Disease | DX: G47.33 Obstructive sleep apnea (adult) (pediatric) (principal) ==

== ENCOUNTER → 2025-02-15 | Outpatient (CLI) | payer MEDICARE, MEDICAID ==
[2025-02-15 13:26] LABS: BASO # 0.1 10^3/uL (0.0-0.2); BASO % 0.5 % (0.0-1.0); EOS # 0.2 10^3/uL (0.0-0.5); EOS % 2.0 % (0.0-3.0); LYMPH # 2.7 10^3/uL (1.5-5.0); LYMPH % 29.3 % (24.0-44.0); MONO # 0.7 10^3/uL (0.0-0.8); MONO % 7.6 % (2.0-8.0); NEUTROPHILS # 5.6 10^3/uL (1.5-8.5); NEUTROPHILS % 60.2 % (36.0-66.0); PLATELET COUNT, AUTOMATED 265 10^3/uL (150-450)
[2025-02-15 15:33] LABS: ALT/SGPT 52 U/L (7.0-40); AST/SGOT 39 U/L (<34); CALCIUM LEVEL 9.4 MG/DL (8.5-10.1); CARBON DIOXIDE LEVEL 29 MMOL/L (20-31); CHLORIDE LEVEL 107 MMOL/L (98-107); CHOLESTEROL LEVEL 113 MG/DL (<200); CHOLESTEROL RISK RATIO 3.41 (<5); CREATININE FOR GFR 0.92 MG/DL (0.70-1.30); GLOMERULAR FILTRATION RATE > 90.0 (>60); LDL CHOLESTEROL 41.3 MG/DL (<100); NON-HDL-C 79.9 MG/DL; POTASSIUM SERUM 4.3 MMOL/L (3.5-5.1); PTH INTACT 35.6 PG/ML (18.5-88.0); SODIUM LEVEL 143 MMOL/L (136-145); TRIGLYCERIDES LEVEL 193 MG/DL (<150)
[2025-02-15 15:37] LABS: TOTAL 25(OH) VITAMIN D 69.4 NG/ML (20.0-100.0)
[2025-02-15 15:39] LABS: FREE T4 1.53 NG/DL (0.89-1.76)
[2025-02-15 16:55] LABS: ESTIMATED AVERAGE GLUCOSE 103.0 MG/DL (60-110)
== END ==
LOC: M LABDRWAD 08:31
PROVIDERS: ATTEND Family Medicine
DX: R73.01 Impaired fasting glucose (principal); I10 Essential (primary) hypertension; E03.9 Hypothyroidism, unspecified; K76.0 Fatty (change of) liver, not elsewhere classified; E55.9 Vitamin D deficiency, unspecified

== ENCOUNTER → 2025-02-22 | Outpatient (REF) | payer MEDICARE, MEDICAID | LOC: M SFHCPLAZ 13:47 | PROVIDERS: ATTEND Family Medicine | DX: Z53.9 Procedure and treatment not carried out, unspecified reason (principal) ==